=== PATIENT | male | born 1945 | race Caucasian/White ===

== ENCOUNTER → 2017-02-22 | Outpatient (CLI) | payer OTHER | LOC: CARD 10:19 | PROVIDERS: ATTEND Internal Medicine Interventional Cardiology | DX: Z01.810 Encounter for preprocedural cardiovascular examination (principal); I10 Essential (primary) hypertension | CPT/HCPCS: 93306 ==

== ENCOUNTER 2021-05-17 09:52 | Inpatient (IN) | payer OTHER ==
[2021-05-17] VITALS (12 sets, daily range): BP systolic 98–135; BP diastolic 50–76
[~2021-05-17] VITALS: Ht 187.9 cm; Wt 101.4 kg
[2021-05-17] MEDS ORDERED: VANCOMYCIN 500 MG/NS 100 ML IV SCH ×2 (10:00)
--- NOTE | 2021-05-17 10:13 | ED General ---
General Chief Complaint: Altered Mental Status Stated Complaint: WEAKNESS Nursing Triage Note: PT TO RM 7 BY WC WITH COMPLAINT OF DECLINE OVER THE LAST TWO WEEKS. STATES PT HAS HAD INCREASING WEAKNESS. PT WILL STATE NAME. Source of Information: Patient Exam Limitations: No Limitations History of Present Illness Date Seen by Provider: May 17, 2021 Time Seen by Provider: 09:50 Initial Comments The patient presents ER by private conveyance with his and daughter and chief complaint that for the past several weeks he has had gradual, steady decline, weakness tiredness inability to walk for the past couple weeks and decreased interest in food and drinking. He has a history of early onset dementia. She had to push him in a wheelchair to his appointment [address] Sanchez for prostate exam. He does not have prostate cancer. He has been complaining of increased frequency of urine and difficulty emptying his bladder. He is diabetic but not on any insulin. No fevers or chills that she is aware of. No cough. Patient is largely noncontributory to history but will answer his name. Nursing notes that he was 88-89% on room air on arrival. He does not rely on oxygen at baseline. He has a history of mesothelioma. He is patient of the [facility]. He is denying any pain and not tender to palpation. He is on glipizide and spironolactone. He has had COVID and flu vaccines. Allergies and Home Medications Allergies Coded Allergies: Penicillins (Verified Allergy, Unknown, 05/17/21) Patient Home Medication List Home Medication List Reviewed: Yes Review of Systems Review of Systems Constitutional: No chills; dizziness; No fever; malaise, weakness EENTM: No ear discharge, No ear pain Respiratory: No cough; short of breath; No wheezing Cardiovascular: No edema, No palpitations Gastrointestinal: No abdominal pain, No constipation, No diarrhea, No nausea Genitourinary: No discharge, No dysuria Musculoskeletal: No back pain, No joint pain All Other Systems Reviewed Negative Unless Noted: Yes Past Bpjtrtu-Bxhksh-Irnmtt Hx Patient Social History Tobacco Use?: No Smoking Status: Former Smoker Smokeless Tobacco Frequency: Current Someday User Use of E-Cig and/or Vaping dev: No Substance use?: No Alcohol Use?: No Pt feels they are or have been: No Physical Exam-Suspected Sepsis Physical Exam Vital Signs Vital Signs - First Documented 2/20/22 09:55 Pulse 90 Resp 32 B/P (MAP) 105/58 (74) Pulse Ox 95 O2 Delivery Nasal Cannula O2 Flow Rate 3.00 Capillary Refill : Less Than 3 Seconds Blood Pressure Mean: 74 Height, Weight, BMI Height: '" Weight: lbs. oz. kg; 25.00 BMI Method: General Appearance: Chronically ill, Moderate Distress Eyes: Bilateral Eye Normal Inspection, Bilateral Eye PERRL, Bilateral Eye EOMI HEENT: PERRL/EOMI, TMs Normal; No Pharynx Normal (dry mm), No Moist Mucous Membranes Neck: Full Range of Motion, Normal Inspection, Non Tender Respiratory: Lungs Clear, No Accessory Muscle Use, Decreased Breath Sounds, Respiratory Distress (88% on room air on arrival.) Cardiovascular: Regular Rate, Rhythm, Normal Peripheral Pulses Gastrointestinal: Normal Bowel Sounds, Non Tender, Soft Extremity: Normal Capillary Refill, Normal Inspection Neurologic/Psychiatric: Alert, No Motor/Sensory Deficits, Other (Oriented to person only. Not contributory towards history but at least answer simple questions yes or no.) Skin: normal color, warm/dry Focused Exam Sepsis Stage: Septic Shock Possible Source: Pulmonary Lactate Level 05/17/21 10:09: Lactic Acid Level 6.70*H Time of Focused Exam: 11:16 Respiratory: Lungs Clear, No Respiratory Distress (Oxygen saturation 98 percent on 3 L by nasal cannula), Decreased Breath Sounds Cardiovascular: Regular Rate, Rhythm, No Edema, Normal Peripheral Pulses Capillary Refill: Less Than 3 Seconds Peripheral Pulses: 2+ Radial Pulses (R), 2+ Radial Pulses (L) Skin: normal color, warm/dry Lactic Acid Level Laboratory Tests Test 05/17/21 10:09 Lactic Acid Level 6.70 MMOL/L (0.50-2.00) *H Within 3hrs of presentation: Admin fluids, Admin ABX, Blood cultures prior to ABX's, Focus exam, Lactate level, Other (2 large-bore peripheral IVs.) Progress/Results/Core Measures Suspected Sepsis SIRS Temperature: Pulse: 90 Respiratory Rate: 32 Laboratory Tests 05/17/21 10:09: White Blood Count 11.1H Blood Pressure 105 /58 Mean: 74 05/17/21 10:09: Lactic Acid Level 6.70*H Laboratory Tests 05/17/21 10:09: Creatinine 2.91H, INR Comment 1.1, Platelet Count 161, Total Bilirubin 1.6H Results/Orders Lab Results Laboratory Tests Test 05/17/21 10:09 05/17/21 10:37 Range/Units White Blood Count 11.1 H 4.3-11.0 10^3/uL Red Blood Count 4.99 4.30-5.52 10^6/uL Hemoglobin 15.1 13.3-17.7 g/dL Hematocrit 50 40-54 % Mean Corpuscular Volume 100 H 80-99 fL Mean Corpuscular Hemoglobin 30 25-34 pg Mean Corpuscular Hemoglobin Concent 30 L 32-36 g/dL Red Cell Distribution Width 14.2 10.0-14.5 % Platelet Count 161 130-400 10^3/uL Mean Platelet Volume 11.5 9.0-12.2 fL Immature Granulocyte % (Auto) 0 % Neutrophils (%) (Auto) 86 H 42-75 % Lymphocytes (%) (Auto) 7 L 12-44 % Monocytes (%) (Auto) 7 0-12 % Eosinophils (%) (Auto) 0 0-10 % Basophils (%) (Auto) 0 0-10 % Neutrophils # (Auto) 9.6 H 1.8-7.8 10^3/uL Lymphocytes # (Auto) 0.7 L 1.0-4.0 10^3/uL Monocytes # (Auto) 0.8 0.0-1.0 10^3/uL Eosinophils # (Auto) 0.0 0.0-0.3 10^3/uL Basophils # (Auto) 0.0 0.0-0.1 10^3/uL Immature Granulocyte # (Auto) 0.0 0.0-0.1 10^3/uL Neutrophils % (Manual) 87 % Lymphocytes % (Manual) 4 % Monocytes % (Manual) 6 % Band Neutrophils 3 % Blood Morphology Comment NORMAL Prothrombin Time 14.4 12.2-14.7 SEC INR Comment 1.1 0.8-1.4 Activated Partial Thromboplast Time 27 24-35 SEC Urine Color YELLOW Urine Clarity CLEAR Urine pH 5.5 5-9 Urine Specific [place] <=1.005 1.016-1.022 Urine Protein NEGATIVE NEGATIVE Urine Glucose (UA) 3+ H NEGATIVE Urine Ketones NEGATIVE NEGATIVE Urine Nitrite NEGATIVE NEGATIVE Urine Bilirubin NEGATIVE NEGATIVE Urine Urobilinogen 0.2 < = 1.0 MG/DL Urine Leukocyte Esterase NEGATIVE NEGATIVE Urine RBC (Auto) NEGATIVE NEGATIVE Urine RBC NONE /HPF Urine WBC NONE /HPF Urine Squamous Epithelial Cells 0-2 /HPF Urine Crystals NONE /LPF Urine Bacteria TRACE /HPF Urine Casts NONE /LPF Urine Mucus NEGATIVE /LPF Urine Culture Indicated CULTURE PENDING Sodium Level 135 135-145 MMOL/L Potassium Level 5.0 3.6-5.0 MMOL/L Chloride Level 98 98-107 MMOL/L Carbon Dioxide Level 16 L 21-32 MMOL/L Anion Gap 21 H 5-14 MMOL/L Blood Urea Nitrogen 45 H 7-18 MG/DL Creatinine 2.91 H 0.60-1.30 MG/DL Estimat Glomerular Filtration Rate 22 BUN/Creatinine Ratio 15 Glucose Level 1173 *H 70-105 MG/DL Lactic Acid Level 6.70 *H 0.50-2.00 MMOL/L Calcium Level 10.0 8.5-10.1 MG/DL Corrected Calcium 10.2 H 8.5-10.1 MG/DL Total Bilirubin 1.6 H 0.1-1.0 MG/DL Aspartate Amino Transf (AST/SGOT) 13 5-34 U/L Alanine Aminotransferase (ALT/SGPT) 35 0-55 U/L Alkaline Phosphatase 127 40-136 U/L Ammonia 10 L 11-32 UMOL/L Troponin I 0.036 H <0.028 NG/ML Total Protein 6.5 6.4-8.2 GM/DL Albumin 3.7 3.2-4.5 GM/DL Urine Opiates Screen NEGATIVE NEGATIVE Urine Oxycodone Screen NEGATIVE NEGATIVE Urine Methadone Screen NEGATIVE NEGATIVE Urine Propoxyphene Screen NEGATIVE NEGATIVE Urine Barbiturates Screen NEGATIVE NEGATIVE Ur Tricyclic Antidepressants Screen NEGATIVE NEGATIVE Urine Phencyclidine Screen NEGATIVE NEGATIVE Urine Amphetamines Screen NEGATIVE NEGATIVE Urine Methamphetamines Screen NEGATIVE NEGATIVE Urine Benzodiazepines Screen NEGATIVE NEGATIVE Urine Cocaine Screen NEGATIVE NEGATIVE Urine Cannabinoids Screen POSITIVE H NEGATIVE Serum Alcohol 10 <10 MG/DL Influenza Type A (RT-PCR) Not Detected Not Detecte Influenza Type B (RT-PCR) Not Detected Not Detecte SARS-CoV-2 RNA (RT-PCR) Not Detected Not Detecte Blood Gas Puncture Site LEFT RADIAL Blood Gas Patient Temperature 36.7 Arterial Blood pH 7.35 L 7.37-7.43 Arterial Blood Partial Pressure CO2 34 L 35-45 MMHG Arterial Blood Partial Pressure O2 82 79-93 MMHG Arterial Blood HCO3 19 L 23-27 MMOL/L Arterial Blood Total CO2 19.7 L 21.0-31.0 MMOL/L Arterial Blood Oxygen Saturation 96 94-100 % Arterial Blood Base Excess -6.0 L -2.5-2.5 MMOL/L Devang Test POSITIVE Blood Gas Ventilator Setting NO Blood Gas Inspired Oxygen 3 My Orders Orders - ILENE EPSTEIN Accucheck Stat ONCE (05/17/21 10:13) Covid 19 Inhouse Test (05/17/21 10:13) Influenza A And B By Pcr (05/17/21 10:13) Cbc With Automated Diff (05/17/21 10:13) Comprehensive Metabolic Panel (05/17/21 10:13) Blood Culture (05/17/21 10:13) Sputum Culture (05/17/21 10:13) Urinalysis (05/17/21 10:13) Urine Culture (05/17/21 10:13) Protime With Inr (05/17/21 10:13) Partial Thromboplastin Time (05/17/21 10:13) Chest 1 View, Ap/Pa Only (05/17/21 10:13) Ed Iv/Invasive Line Start (05/17/21 10:13) Ed Iv/Invasive Line Start (05/17/21 10:13) Ekg Tracing (05/17/21 10:13) Troponin I Connor (05/17/21 10:13) Vital Signs Adult Sepsis Patie Q15M (05/17/21 10:13) O2 (05/17/21 10:13) Remove Rings In Anticipation O (05/17/21 10:13) Lactic Acid Analyzer (05/17/21 10:13) Ns Iv 1000 Ml (Sodium Chloride 0.9%) (05/17/21 10:15) Cefepime Injection (Maxipime Injection) (05/17/21 10:15) Vancomycin Injection (Vancomycin Injecti (05/17/21 10:15) Ammonia (05/17/21 10:13) Drug Screen Stat (Urine) (05/17/21 10:13) Alcohol (05/17/21 10:13) Insulin (Regular) Human (Novolin R (Per (05/17/21 10:15) Ct Head/Cervical Spine Wo (05/17/21 10:13) Ed Iv/Invasive Line Start (05/17/21 10:27) Ns Iv 1000 Ml (Sodium Chloride 0.9%) (05/17/21 10:30) Ns Iv 1000 Ml (Sodium Chloride 0.9%) (05/17/21 10:27) Manual Differential (05/17/21 10:09) Arterial Blood Gas (05/17/21 10:38) Ed Iv/Invasive Line Start (05/17/21 10:40) Ns Iv 1000 Ml (Sodium Chloride 0.9%) (05/17/21 10:45) Procalcitonin (Pct) (05/17/21 11:25) Fibrin Degradation Products (05/17/21 11:25) Medications Given in ED Current Medications Medications Dose Ordered Sig/Lilliam Route Start Time Stop Time Status Last Admin Dose Admin Cefepime HCl 1000 mg/Sodium Chloride 50 ml @ 100 mls/hr ONCE ONCE IV 05/17/21 10:15 05/17/21 10:44 DC 05/17/21 10:36 100 MLS/HR Insulin Human Regular 10 unit ONCE ONCE IV 05/17/21 10:15 05/17/21 10:18 DC 05/17/21 10:36 10 UNIT Vancomycin HCl 1750 mg/Sodium Chloride 500 ml @ 258 mls/hr ONCE ONCE IV 05/17/21 10:15 05/17/21 12:11 05/17/21 11:09 258 MLS/HR Vital Signs/I&O 05/17/21 09:55 Pulse 90 Resp 32 B/P (MAP) 105/58 (74) Pulse Ox 95 O2 Delivery Nasal Cannula O2 Flow Rate 3.00 Capillary Refill : Less Than 3 Seconds 2 Blood Pressure Mean: 74 Progress Note #1: Time: 10:18 Progress Note Significant hyperglycemia with Accu-Chek reading high. 10 units of IV regular insulin, 2 L of fluid which is between 20 and 30 mL/kg, septic work-up including cefepime and vancomycin to cover for UTI or pneumonia and given his hypoxia. ABG. EKG. because of the history of recent falls CT of his head and C-spine. COVID and influenza swabs. Progress Note #2: Time: 11:14 Progress Note Glucose is 1173. Ketones are not present but he is in metabolic acidosis. X- ray unrevealing but he is quite dry and because of his hypoxia I suspect a pneumonia. We will go ahead and cover him with DVT prophylaxis, broad-spectrum antibiotics and set him up in the ICU for an insulin drip. ECG Initial ECG Impression Date: May 17, 2021 Initial ECG Impression Time: 10:20 Initial ECG Rate: 90 Initial ECG Rhythm: Normal Sinus Initial ECG Intervals: Normal Initial ECG Impression: Normal Comment Normal sinus rhythm with no clinically relevant ST elevation or depression. Diagnostic Imaging Diagonstic Imaging: Xray Plain Films/CT/US/NM/MRI: chest Comments NAME: [facility] REC#: [id number] PT STATUS: REG ER : 1945 PHYSICIAN: ILENE EPSTEIN MD ADMIT DATE: 05/17/21/ER Draft Date of Exam:05/17/21 CHEST 1 VIEW, AP/PA ONLY EXAMINATION: Chest 1 view HISTORY: Altered mental status. COMPARISON: None available. FINDINGS: There is mild basilar atelectasis. Otherwise, the lungs are clear without edema or pneumonia. No pleural effusion or pneumothorax. Heart size is normal. IMPRESSION: 1. Mild atelectasis, otherwise clear lungs. Dictated on workstation # [id number] Dict: 05/17/21 1107 Trans: 05/17/21 1109 [facility] [id number] Interpreted by: QUIQUE MEZA MD Electronically signed by: Reviewed: Reviewed by Me Diagonstic Imaging: CT Plain Films/CT/US/NM/MRI: c-spine, head Comments NAME: [facility] REC#: [id number] PT STATUS: REG ER : 1945 PHYSICIAN: ILENE EPSTEIN MD ADMIT DATE: 05/17/21/ER Draft Date of Exam:05/17/21 CT HEAD/CERVICAL SPINE WO EXAMINATION: CT head and CT cervical spine without contrast. TECHNIQUE: Multiple contiguous axial images were obtained through the brain and cervical spine without the use of intravenous contrast. Sagittal and coronal reformations through the cervical spine were then performed. All CT scans use one or more of the following dose optimizing techniques: automated exposure control, MA and/or KvP adjustment based on patient size and exam type or iterative reconstruction. HISTORY: Head and neck injury COMPARISON: None available. FINDINGS: The lora-white matter differentiation is normal. No mass effect or midline shift. There is age related cerebral atrophy with ex vacuo dilation of the ventricles. There is an old right cerebellar infarct. Periventricular white matter hypoattenuation is in keeping with chronic small vessel ischemic changes. Basilar cisterns are patent. There are no intra- or extra-axial fluid collections. There is no intracranial hemorrhage. The orbits are normal. Paranasal sinuses are normal. Mastoid air cells are clear. No soft tissue abnormality is seen. No osseus lesions or fractures are seen. The alignment of the cervical spine is normal. No fracture is seen. Vertebral body heights are normal. The craniocervical junction is normal. There is moderate degenerative disease in the cervical spine. There is no spinal canal stenosis. No soft tissue abnormality is seen in the neck. Limited views of the superior thorax are normal. IMPRESSION: 1. No acute intracranial abnormality. 2. No cervical spine fracture. Dictated on workstation # [id number] Dict: 05/17/21 1116 Trans: 05/17/21 1120 [facility] [id number] Interpreted by: QUIQUE MEZA MD Electronically signed by: Reviewed: Reviewed by Me Departure Communication (Admissions) Time/Spoke to Admitting Phy: 11:27 Discussed the case with Dr. Briseno who agrees to accept the patient to the ICU. Time/Spoke to Consulting Phy: 11:30 Discussed the case with eICU and they agree to consult on the case. Impression Primary Impression: Type 2 diabetes mellitus with hyperosmolar hyperglycemic state (HHS) Additional Impressions: Septic shock Pneumonia Qualified Codes: J18.9 - Pneumonia, unspecified organism Acute respiratory failure with hypoxemia Acute kidney injury Disposition: ADMITTED INPATIENT Condition: Stable Admissions Decision to Admit Reason: Admit from ER (General) Decision to Admit/Date: May 17, 2021 Time/Decision to Admit Time: 11:24 Departure-Patient Inst. Referrals: MARITZA SIDDIQUI (PCP/Family) Primary Care Physician ILENE EPSTEIN May 17, 2021 10:13
[2021-05-17] MEDS ORDERED: NS IV 1000 ML 1,000 ML IV SCH ×3 (10:15→10:45)
[2021-05-17] MEDS ORDERED: VANCOMYCIN INJECTION 1,750 MG in NS IV 500 ML 500 ML IV ONE (10:15)
[2021-05-17] MEDS ORDERED: CEFEPIME INJECTION 1,000 MG in NS (IVPB) 50 ML IV ONE (10:15)
[2021-05-17] MEDS ORDERED: inSUlin (REGULAR) HUMAN 1 UNIT/0.01 ML (CHARGE PER UNIT) IV ONE (10:15)
[2021-05-17 10:23] LABS: BILIRUBIN,URINE NEGATIVE (NEGATIVE); CLARITY,URINE CLEAR; COLOR,URINE YELLOW; GLUCOSE, URINE (UA) 3+ (NEGATIVE); KETONES,URINE NEGATIVE (NEGATIVE); LEUKOCYTE ESTERASE ,URINE NEGATIVE (NEGATIVE); NITRITE,URINE NEGATIVE (NEGATIVE); PH,URINE 5.5 (5-9); PROTEIN,URINE NEGATIVE (NEGATIVE)
[2021-05-17] MEDS ORDERED: NS IV 1000 ML 1,000 ML ONE (10:27)
[2021-05-17 10:31] LABS: BACTERIA,URINE TRACE /HPF; BASOPHILS % (AUTO) 0 % (0-10); EOSINOPHILS % (AUTO) 0 % (0-10); HEMATOCRIT 50 % (40-54); HEMOGLOBIN 15.1 g/dL (13.3-17.7); LYMPHOCYTES # (AUTO) 0.7 10^3/uL (1.0-4.0); LYMPHOCYTES % (AUTO) 7 % (12-44); MEAN CORPUSCULAR HEMOGLOBIN 30 pg (25-34); MEAN CORPUSCULAR HGB CONC 30 g/dL (32-36); MEAN CORPUSCULAR VOLUME 100 fL (80-99); MEAN PLATELET VOLUME 11.5 fL (9.0-12.2); MONOCYTES # (AUTO) 0.8 10^3/uL (0.0-1.0); MONOCYTES % (AUTO) 7 % (0-12); NEUTROPHILS # (AUTO) 9.6 10^3/uL (1.8-7.8); NEUTROPHILS % (AUTO) 86 % (42-75); PLATELET COUNT 161 10^3/uL (130-400); SQUAMOUS EPITHELIAL CELL,UR 0-2 /HPF; WHITE BLOOD COUNT 11.1 10^3/uL (4.3-11.0)
[2021-05-17 10:32] LABS: ALBUMIN 3.7 GM/DL (3.2-4.5)
[2021-05-17 10:34] LABS: INR 1.1 (0.8-1.4); PROTHROMBIN TIME PATIENT 14.4 SEC (12.2-14.7)
[2021-05-17 10:35] LABS: TOTAL PROTEIN 6.5 GM/DL (6.4-8.2)
[2021-05-17 10:37] LABS: BILIRUBIN,TOTAL 1.6 MG/DL (0.1-1.0)
[2021-05-17 10:39] LABS: CREATININE SERUM 2.91 MG/DL (0.60-1.30)
[2021-05-17 10:43] LABS: ABG OXYGEN SATURATION 96 % (94-100); ABG PCO2 34 MMHG (35-45); ABG PH 7.35 (7.37-7.43); ABG PO2 82 MMHG (79-93); ABG TCO2 19.7 MMOL/L (21.0-31.0)
[2021-05-17 10:45] LABS: AMPHETAMINE SCREEN, URINE NEGATIVE (NEGATIVE); BARBITURATE SCREEN URINE NEGATIVE (NEGATIVE); BENZODIAZEPINES SCREEN URINE NEGATIVE (NEGATIVE); CANNABINOID SCREEN, URINE POSITIVE (NEGATIVE); COCAINE SCREEN URINE NEGATIVE (NEGATIVE); METHADONE STAT NEGATIVE (NEGATIVE); METHAMPHETAMINE SCREEN URINE S NEGATIVE (NEGATIVE); OPIATE SCREEN URINE NEGATIVE (NEGATIVE); OXYCODONE STAT NEGATIVE (NEGATIVE); PROPOXYPHENE STAT NEGATIVE (NEGATIVE); TRICYCLIC ANTIDEPRESSANTS SCRE NEGATIVE (NEGATIVE)
[2021-05-17 10:47] LABS: ALLENS TEST POSITIVE; INSPIRED O2 3; PATIENT TEMP 36.7; VENTILATOR NO
[2021-05-17 10:51] LABS: BAND NEUTROPHILS 3 %; LYMPHOCYTES % (MANUAL) 4 %; MONOCYTES % (MANUAL) 6 %; NEUTROPHILS % (MANUAL) 87 %; RBC MORPH NORMAL
--- NOTE | 2021-05-17 11:09 | Diagnostic Imaging Report ---
EXAMINATION: Chest 1 view HISTORY: Altered mental status. COMPARISON: None available. FINDINGS: There is mild basilar atelectasis. Otherwise, the lungs are clear without edema or pneumonia. No pleural effusion or pneumothorax. Heart size is normal. IMPRESSION: 1. Mild atelectasis, otherwise clear lungs. Dictated by: Dictated on workstation # [id number]
--- NOTE | 2021-05-17 11:20 | Diagnostic Imaging Report ---
EXAMINATION: CT head and CT cervical spine without contrast. TECHNIQUE: Multiple contiguous axial images were obtained through the brain and cervical spine without the use of intravenous contrast. Sagittal and coronal reformations through the cervical spine were then performed. All CT scans use one or more of the following dose optimizing techniques: automated exposure control, MA and/or KvP adjustment based on patient size and exam type or iterative reconstruction. HISTORY: Head and neck injury COMPARISON: None available. FINDINGS: The lora-white matter differentiation is normal. No mass effect or midline shift. There is age related cerebral atrophy with ex vacuo dilation of the ventricles. There is an old right cerebellar infarct. Periventricular white matter hypoattenuation is in keeping with chronic small vessel ischemic changes. Basilar cisterns are patent. There are no intra- or extra-axial fluid collections. There is no intracranial hemorrhage. The orbits are normal. Paranasal sinuses are normal. Mastoid air cells are clear. No soft tissue abnormality is seen. No osseus lesions or fractures are seen. The alignment of the cervical spine is normal. No fracture is seen. Vertebral body heights are normal. The craniocervical junction is normal. There is moderate degenerative disease in the cervical spine. There is no spinal canal stenosis. No soft tissue abnormality is seen in the neck. Limited views of the superior thorax are normal. IMPRESSION: 1. No acute intracranial abnormality. 2. No cervical spine fracture. Dictated by: Dictated on workstation # [id number]
[2021-05-17] MEDS ORDERED: 1/2 NS IV SOLUTION 1,000 ML IV ONE (13:19)
[2021-05-17] MEDS ORDERED: POTASSIUM CL 10MEQ/50ML IVPB 50 ML IV ONE (13:20)
--- NOTE | 2021-05-17 13:25 | History & Physical-Hospitalist ---
History of Present Illness HPI/Chief Complaint Khris Dc is a 76 year old male with PMH HTN, HLD, T2DM, mesothelioma, dementia, who presented with weakness. He is a poor historian. According to ER, he was weak and tired over recent weeks. He was also having decreased appetite and intake. He denies pain. He denies shortness of breath. Source: patient, RN/MD Exam Limitations: clinical condition Date Seen 05/17/21 Time Seen by a Provider: 13:15 Attending Physician Cam Tran MD PCP Mariajose Grace Referring Physician Date of Admission May 17, 2021 at 11:15 Home Medications & Allergies Home Medications Reviewed patient Home Medication Reconciliation performed by pharmacy medication reconciliations crime scene technician and/or nursing. Patients Allergies have been reviewed. Allergies Allergies Coded Allergies Penicillins (Verified Allergy, Unknown, 05/17/21) Past Knjcoeb-Syxjly-Ozwpau Hx Patient Social History Tobacco Use?: No Smoking Status: Former Smoker Smokeless Tobacco Frequency: Current Someday User Use of E-Cig and/or Vaping dev: No Substance use?: No Alcohol Use?: No Pt feels they are or have been: No Immunizations Up To Date First/Initial COVID19 Vaccinat: 2020 Second COVID19 Vaccination Faustino: 2020 Current Status Advance Directives: No Primary Language: Colombian Preferred Spoken Language: Colombian Past Medical History High Cholesterol, Hypertension Dementia Diabetes, Non-Insulin dep Family Medical History No Pertinent Family Hx Review of Systems Constitutional: no symptoms reported, see HPI Physical Exam Physical Exam Vital Signs Vital Signs - First Documented 05/17/21 05/17/21 09:55 13:15 Temp 36.1 Pulse 90 Resp 32 B/P (MAP) 105/58 (74) Pulse Ox 95 O2 Delivery Nasal Cannula O2 Flow Rate 3.00 Capillary Refill : Less Than 3 Seconds Height, Weight, BMI Height: '" Weight: lbs. oz. kg; 25.00 BMI Method: General Appearance: No Apparent Distress, WD/WN HEENT: PERRL/EOMI, Other (dry mucous membranes) Neck: Normal Inspection, Supple Respiratory: Lungs Clear, No Respiratory Distress Cardiovascular: Regular Rate, Rhythm, No Edema, No Murmur Gastrointestinal: Normal Bowel Sounds, Non Tender, Soft Extremity: Normal Inspection, Non Tender, No Pedal Edema Neurologic/Psychiatric: Alert, No Motor/Sensory Deficits, Disoriented Skin: Normal Color, Warm/Dry Results Results/Procedures Labs Laboratory Tests 05/17/21 10:09 05/17/21 13:31 05/17/21 15:11 05/17/21 16:52 05/17/21 18:32 05/18/21 05:17 05/18/21 13:40 Patient resulted labs reviewed. Imaging: Reviewed Imaging Report Assessment/Plan Admission Diagnosis T2DM with HHS Admission Status: Inpatient Order (span 2 midnights) Reason for Inpatient Admission: IV insulin Assessment and Plan T2DM with HHS HARRIS Lactic acidosis HHS protocol IV fluids PNA Acute respiratory failure with hypoxia Zosyn Supplemental oxygen as needed HTN HLD BPH Dementia Await med rec DVT prophylaxis: Lovenox Critical Care Critically Ill Patient Diagnosis/Problems Diagnosis/Problems (1) Type 2 diabetes mellitus with hyperosmolar hyperglycemic state (HHS) Status: Acute (2) Lactic acidosis Status: Acute (3) Acute kidney injury Status: Acute (4) Acute respiratory failure with hypoxemia Status: Acute (5) Pneumonia Status: Acute Qualifiers: Pneumonia type: due to unspecified organism Laterality: unspecified laterality Lung location: unspecified part of lung Qualified Codes: J18.9 - Pneumonia, unspecified organism CAM TRAN MD May 17, 2021 13:25
[2021-05-17] MEDS ORDERED: ENOXAPARIN 30 MG/0.3 ML (LOVENOX) SYR SC SCH (14:00)
[2021-05-17] MEDS ORDERED: ONDANSETRON 4 MG/2 ML (SDV) Z0FRAN IV PRN (14:00)
[2021-05-17] MEDS ORDERED: ACETAMINOPHEN 325 MG TABLET PO PRN (14:00)
[2021-05-17] MEDS ORDERED: ACETAMINOPHEN 650 MG SUPP (TYLENOL) PR PRN (14:15)
[2021-05-17] MEDS ORDERED: RT-ALBUTEROL/IPRATROPIUM 3 ML (DUONEB) VIAL INH PRN (15:15)
--- NOTE | 2021-05-17 15:29 | Tele-ICU Consult ---
History of Present Illness History of Present Illness Date Seen by Provider: May 17, 2021 Time Seen by Provider: 15:28 Date of Admission Allergies and Home Medications Allergies Coded Allergies: Penicillins (Verified Allergy, Unknown, 05/17/21) Past Medical/Social/Family Hx Patient Social History Tobacco Use?: No Smoking Status: Former Smoker Smokeless Tobacco Frequency: Current Someday User Use of E-Cig and/or Vaping dev: No Substance use?: No Alcohol Use?: No Pt stated abuse/neglect: No Immunizations Up To Date Influenza Vaccine Up-to-Date: Yes; Up-to-Date First/Initial COVID19 Vaccinat: 2020 Second COVID19 Vaccination Faustino: 2020 Current Status Advance Directives: No Primary Language: Georgian Preferred Spoken Language: Georgian Review of Systems Constitutional: see HPI Focused Exam Lactate Level 05/17/21 10:09: Lactic Acid Level 6.70*H 05/17/21 12:48: Lactic Acid Level 3.50*H Height, Weight, BMI Height: '" Weight: lbs. oz. kg; 27.98 BMI Method: Time of Focused Exam: 11:16 Lactic Acid Level Laboratory Tests Test 05/17/21 12:48 Lactic Acid Level 3.50 MMOL/L (0.50-2.00) *H Exam Exam Patient acknowledged, consented, and participated in this virtual visit which was conducted using real time audio/video Vital Signs Date Time Temp Pulse Resp B/P (MAP) Pulse Ox O2 Delivery O2 Flow Rate FiO2 05/17/21 14:55 36.1 101 94 05/17/21 14:00 101 10 128/76 (93) 94 Nasal Cannula 2.00 05/17/21 13:30 100 22 130/65 (86) 91 Nasal Cannula 2.00 05/17/21 13:24 102 05/17/21 13:15 36.1 Nasal Cannula 2.00 05/17/21 09:55 90 32 105/58 (74) 95 Nasal Cannula 3.00 05/17/21 09:55 Nasal Cannula 3.00 Height & Weight Height: '" Weight: lbs. oz. kg; 27.98 BMI Method: General Appearance: No Apparent Distress, WD/WN HEENT: PERRL/EOMI, Other (dry mucous membranes) Neck: Normal Inspection, Supple Respiratory: Lungs Clear, No Respiratory Distress Cardiovascular: Regular Rate, Rhythm, No Edema, No Murmur Capillary Refill: Less Than 3 Seconds Peripheral Pulses: 2+ Radial Pulses (R), 2+ Radial Pulses (L) Extremity: Normal Inspection, Non Tender, No Pedal Edema Neurologic/Psychiatric: Alert, No Motor/Sensory Deficits, Disoriented Skin: Normal Color, Warm/Dry Results Lab Laboratory Tests 05/17/21 10:09 05/17/21 13:31 Assessment/Plan Assessment/Plan (Tele-ICU Physician , consultation) Available chart/ vitals / labs / Images reviewed H&P is from ER notes Patient's information available about PMH, Shx, Fhx allergy reviewed in EMR. ROS as per chart and RN report Now in ICU, hemodynamically stable Video assessment done using teleICU camera, rest of exam as per RN Discussed with RN. Consultants: Hospital course: 05/17 - DKA, AMS , HARRIS A/P DKA Insulin drip continue to monitor for resolution of acidosis, AG and electrolytes. Continue hydration. HARRIS - dehydration, hypotension - cont IVF - follow closely Leukocytosis with elevPCT ( NEG covid and flu) - started on cevepime vanco 05/17 - follow cx Elv lactate - -possible sepsis and mild hypoxia - improving after 3 L NS in ER - follow elv trop - ? demand , follow Encephalopathy --? due to above -CTH and cerv spine CT - no acute finding 05/17 Hypoxia - mild , on 4 l NC - follow Lines : (Central Line Necessity Reviewed) Boyle: 05/17 OG: Nutrition: npo Analgesia: Anxiety/ delirium VTE Prophylaxis: started on lovenox - WILL RECINOS TO HEPARIN IF WORSENING GFR Stress Ulcer Prophylaxis: Plans in collaboration with bedside consultants and IM MDs. Discussed with RN to reach out if any questions or concerns A total of 35 minutes of critical care time was devoted to this patient today, required to treat and/or prevent further deterioration of critical care condition ( as above ) . AMIRA JUAREZ MD May 17, 2021 15:29
[2021-05-17] MEDS: D5 1/2 NS IV 1,000 ML IV SCH ×3 (15:40→23:27)
[2021-05-17] MEDS: 1/2 NS IV SOLUTION 1,000 ML IV SCH ×3 (15:40→21:39)
[2021-05-17] MEDS: DEXTROSE 10% IV SOLUTION 1,000 ML IV SCH (15:40)
[2021-05-17] MEDS: POTASSIUM CL 10MEQ/50ML IVPB X 4 (TOTAL 40 MEQ) IV SCH ×3 (15:42→15:47)
[2021-05-17 15:44] LABS: POTASSIUM 4.4 MMOL/L (3.6-5.0)
[2021-05-17] MEDS: POTASSIUM CL 10MEQ/50ML IVPB 50 ML IV SCH ×5 (15:44→23:28)
[2021-05-17 15:46] LABS: CALCIUM 8.7 MG/DL (8.5-10.1)
[2021-05-17 15:50] LABS: CREATININE SERUM 2.41 MG/DL (0.60-1.30)
[2021-05-17 17:17] LABS: POTASSIUM 4.2 MMOL/L (3.6-5.0)
[2021-05-17 17:18] LABS: CALCIUM 8.8 MG/DL (8.5-10.1)
[2021-05-17 17:22] LABS: CREATININE SERUM 2.34 MG/DL (0.60-1.30)
[2021-05-17 18:46] LABS: POTASSIUM 4.3 MMOL/L (3.6-5.0)
[2021-05-17 18:51] LABS: CREATININE SERUM 2.24 MG/DL (0.60-1.30)
[2021-05-17 18:54] LABS: MAGNESIUM 2.9 MG/DL (1.6-2.4)
[2021-05-17] MEDS: CEFEPIME 1,000 MG/NS 50 ML IVPB IV SCH ×2 (21:40)
[2021-05-17] MEDS: RT-ALBUTEROL/IPRATROPIUM 3 ML (DUONEB) VIAL INH SCH (22:08)
[2021-05-18] VITALS (25 sets, daily range): BP systolic 102–141; BP diastolic 52–114
[2021-05-18] MEDS: DEXTROSE 10% IV SOLUTION 1,000 ML IV SCH ×3 (01:14→18:12)
[2021-05-18] MEDS: 1/2 NS IV SOLUTION 1,000 ML IV SCH ×6 (01:14→22:47)
[2021-05-18] MEDS: POTASSIUM CL 10MEQ/50ML IVPB 50 ML IV SCH ×13 (01:38→23:34)
[2021-05-18] MEDS: D5 1/2 NS IV 1,000 ML IV SCH ×6 (02:07→22:48)
[2021-05-18 05:43] LABS: BASOPHILS % (AUTO) 0 % (0-10); EOSINOPHILS # (AUTO) 0.1 10^3/uL (0.0-0.3); EOSINOPHILS % (AUTO) 1 % (0-10); HEMATOCRIT 40 % (40-54); HEMOGLOBIN 13.1 g/dL (13.3-17.7); LYMPHOCYTES # (AUTO) 1.9 10^3/uL (1.0-4.0); LYMPHOCYTES % (AUTO) 20 % (12-44); MEAN CORPUSCULAR HEMOGLOBIN 31 pg (25-34); MEAN CORPUSCULAR HGB CONC 33 g/dL (32-36); MEAN CORPUSCULAR VOLUME 93 fL (80-99); MEAN PLATELET VOLUME 10.7 fL (9.0-12.2); MONOCYTES # (AUTO) 0.9 10^3/uL (0.0-1.0); MONOCYTES % (AUTO) 10 % (0-12); NEUTROPHILS # (AUTO) 6.3 10^3/uL (1.8-7.8); NEUTROPHILS % (AUTO) 68 % (42-75); PLATELET COUNT 133 10^3/uL (130-400); WHITE BLOOD COUNT 9.2 10^3/uL (4.3-11.0)
[2021-05-18 06:00] LABS: POTASSIUM 4.1 MMOL/L (3.6-5.0)
[2021-05-18 06:01] LABS: CALCIUM 8.5 MG/DL (8.5-10.1)
[2021-05-18 06:05] LABS: CREATININE SERUM 1.73 MG/DL (0.60-1.30); PHOSPHORUS 1.8 MG/DL (2.3-4.7)
[2021-05-18 06:08] LABS: MAGNESIUM 2.5 MG/DL (1.6-2.4)
[2021-05-18] MEDS: RT-ALBUTEROL/IPRATROPIUM 3 ML (DUONEB) VIAL INH SCH ×2 (06:31→21:00)
[2021-05-18] MEDS: MAGNESIUM 1 GM/100 ML IVPB 100 ML IV SCH (06:41)
[2021-05-18] MEDS: KCL 20 MEQ TAB (K-DUR) PO SCH (06:41)
--- NOTE | 2021-05-18 07:23 | Physician Query Clarification ---
PQ-Uncertain Diagnosis Admission/Discharge Admission Date: May 17, 2021 at 11:15 Discharge Date: Dr. Tran, The medical record reflects the following clinical scenario: History/Risk Factors: DM 2 w/hyperosmolar hyperglycemic, acute hypoxic respiratory failure, HARRIS, pneumonia Clinical Findings: WBC 11.1, Glucose 1173, Lactic acid 6.70, T 36.1, P 96, R32 Treatment: IVF, IV Cefepime, IV Vancomycin Question: Is septic shock a clinically valid diagnosis? Septic shock was documented in the ER record with no further documentation in the medical record. Please document a response in Progress Note or Discharge Summary. 1. Yes, clinically valid, condition resolved. 2. No, condition ruled out. 3. Other, with explanation of clinical findings. 4. Undetermined, no explanation for clinical findings. PHYSICIAN RESPONSE Diagnosis clinically valid: No, conditon ruled out Please remember a lack of response to the above will prompt a phone page by CDI/Coding staff. In responding to this query, please exercise your independent professional judgment. The purpose of this communication is to more accurately reflect the complexity of your patients condition. The fact that a question is asked does not imply that any particular answer is desired or expected. Thank you for your timely response to this clarification. Requestors name: Diana THIS PHYSICIAN QUERY FORM IS A PERMANENT PART OF THE MEDICAL RECORD DIANA DALTON May 18, 2021 07:23 CAM TRAN MD May 21, 2021 00:14
--- NOTE | 2021-05-18 07:30 | Physician Query Clarification ---
PQ-Intro New Diagnosis Admission/Discharge Admission Date: May 17, 2021 at 11:15 Discharge Date: Dr. Tran, The medical record reflects the following clinical scenario: History/Risk Factors: DM 2 w/hyperosmolar hyperglycemic, acute hypoxic respiratory failure, HARRIS, Pneumonia Clinical Findings: Troponin 0.036 Treatment: IVF, IV Cefepime, IV Vancomycin Question: What condition best reflects the above clinical scenario? Please document a response in the Progress Noter or Discharge Summary. 1. CA type 2 due to demand ischemia 2. Elevated troponin underlying cause undetermined 3. Other, with explanation of the clinical findings. 4. Clinically undetermined, no explanation for the clinical findings. PHYSICIAN RESPONSE What condition reflects above: 1 Please remember a lack of response to the above will prompt a phone page by CDI/Coding staff. In responding to this query, please exercise your independent professional judgment. The purpose of this communication is to more accurately reflect the complexity of your patients condition. The fact that a question is asked does not imply that any particular answer is desired or expected. Thank you for your timely response to this clarification. Requestors name: Diana THIS PHYSICIAN QUERY FORM IS A PERMANENT PART OF THE MEDICAL RECORD DIANA DALTON May 18, 2021 07:29 CAM TRAN MD May 21, 2021 00:15
[2021-05-18] MEDS: CEFEPIME 1,000 MG/NS 50 ML IVPB IV SCH ×4 (08:00→17:14)
--- NOTE | 2021-05-18 08:32 | Diagnostic Imaging Report ---
INDICATION: Pneumonia. Frontal chest obtained at 04:22 a.m. compared with 05/17/2021. FINDINGS: The heart is mildly enlarged. There is some new patchy infiltrate in the left midlung and base suspicious for pneumonia with a small amount of left pleural fluid. Right lung is clear. Density overlying the right midlung is probably a skinfold artifact. IMPRESSION: Mild cardiomegaly. There is some new infiltrate in the left midlung and base with small left pleural effusion. Dictated by: Dictated on workstation # [id number]
[2021-05-18] MEDS: VANCOMYCIN 1500 MG/NS 500 ML IVPB IV SCH ×2 (10:26)
--- NOTE | 2021-05-18 10:46 | Tele-ICU Progress Note ---
Subjective Date Seen by a Provider: May 18, 2021 Time Seen by a Provider: 10:46 Sepsis Event Evaluation Height, Weight, BMI Height: '" Weight: lbs. oz. kg; 27.98 BMI Method: Focused Exam Lactate Level 05/17/21 12:48: Lactic Acid Level 3.50*H 05/17/21 18:32: Lactic Acid Level 3.16*H 05/17/21 22:08: Lactic Acid Level 1.87 Time of Focused Exam: 11:16 Exam Exam Patient acknowledged, consented, and participated in this virtual visit which was conducted using real time audio/video Vital Signs Date Time Temp Pulse Resp B/P (MAP) Pulse Ox O2 Delivery O2 Flow Rate FiO2 05/18/21 10:00 94 22 112/81 (91) 93 Nasal Cannula 2.00 05/18/21 09:00 92 18 140/74 (96) 97 Nasal Cannula 2.00 05/18/21 08:00 91 25 125/76 (92) 97 Nasal Cannula 2.00 05/18/21 07:45 97 Nasal Cannula 2.00 05/18/21 07:33 97 05/18/21 07:00 98 10 117/77 (90) 96 Nasal Cannula 2.00 05/18/21 06:32 96 Nasal Cannula 3.00 05/18/21 06:00 90 141/82 (101) 92 Nasal Cannula 2.00 05/18/21 05:00 99 132/73 (92) 94 Nasal Cannula 2.00 05/18/21 04:00 96 103/60 (74) 92 Nasal Cannula 2.00 05/18/21 04:00 Nasal Cannula 2.00 05/18/21 04:00 36.8 05/18/21 03:00 91 27 109/71 (84) 91 Nasal Cannula 2.00 05/18/21 02:00 93 15 102/52 (69) 92 Nasal Cannula 2.00 05/18/21 01:00 89 22 112/57 (75) 95 Nasal Cannula 2.00 05/18/21 01:00 89 05/18/21 00:00 92 115/65 (82) 97 Nasal Cannula 2.00 05/18/21 00:00 36.6 05/17/21 23:15 96 23 119/67 (84) 95 Nasal Cannula 2.00 05/17/21 22:15 93 24 116/51 (72) 96 Nasal Cannula 2.00 05/17/21 22:08 Nasal Cannula 3.00 05/17/21 21:00 94 24 110/59 (76) 96 Nasal Cannula 2.00 05/17/21 20:30 100 20 120/68 (85) 94 Nasal Cannula 2.00 05/17/21 20:00 Nasal Cannula 2.00 05/17/21 19:50 36.5 05/17/21 19:15 92 23 98/50 (66) 95 Nasal Cannula 2.00 05/17/21 19:00 89 05/17/21 18:00 94 25 116/67 (83) 98 Nasal Cannula 2.00 05/17/21 17:00 96 23 114/67 (83) 96 Nasal Cannula 2.00 05/17/21 16:00 98 28 135/71 (92) 97 Nasal Cannula 2.00 05/17/21 15:59 36.7 05/17/21 15:00 98 18 134/72 (92) 96 Nasal Cannula 2.00 05/17/21 14:55 36.1 101 94 05/17/21 14:00 101 10 128/76 (93) 94 Nasal Cannula 2.00 05/17/21 13:30 Nasal Cannula 2.00 05/17/21 13:30 100 22 130/65 (86) 91 Nasal Cannula 2.00 05/17/21 13:24 102 05/17/21 13:15 36.1 Nasal Cannula 2.00 05/17/21 13:03 96 20 112/63 94 Nasal Cannula 3.00 I & O 05/18/21 07:00 Intake Total 6915 ml Output Total 1450 ml Balance 5465 ml Height & Weight Height: '" Weight: lbs. oz. kg; 27.98 BMI Method: General Appearance: No Apparent Distress, WD/WN HEENT: PERRL/EOMI, Other (dry mucous membranes) Neck: Normal Inspection, Supple Respiratory: Lungs Clear, No Respiratory Distress Cardiovascular: Regular Rate, Rhythm, No Edema, No Murmur Capillary Refill: Less Than 3 Seconds Peripheral Pulses: 2+ Radial Pulses (R), 2+ Radial Pulses (L) Extremity: Normal Inspection, Non Tender, No Pedal Edema Neurologic/Psychiatric: Alert, No Motor/Sensory Deficits, Disoriented Skin: Normal Color, Warm/Dry Results Lab Laboratory Tests 05/17/21 10:09 05/17/21 13:31 05/17/21 15:11 05/17/21 16:52 05/17/21 18:32 05/18/21 05:17 Assessment/Plan Assessment/Plan (Tele-ICU Physician , Progress Note ) Available chart/ vitals / labs / Images reviewed Video assessment done using teleICU camera, rest of exam as per RN Discussed with RN , EXAM PER RN Events overnight : Afebrile FiO2 - 2l I/O = pos 3700 Drips: Pressors: , hemodynamically stable Consultants: Hospital course: 05/17 - DKA, AMS , HARRIS A/P DKA Insulin drip continue to monitor for resolution of acidosis, AG and electrolytes. - hopefully will stop gtt today Continue hydration - decrease rate HARRIS - dehydration, hypotension - simproved from 2.9-->1.7 - cont IVF - follow closely Leukocytosis with elev PCT ( NEG covid and flu) - started on cefepime vanco 05/17 - follow cx Elv lactate - -possible sepsis and mild hypoxia -resolved elv trop - ? demand , follow Encephalopathy- AAO x1 --? due to above -CTH and cerv spine CT - no acute finding 05/17 Hypoxia - mild , on RA now Lines : (Central Line Necessity Reviewed) Boyle: 05/17 OG: Nutrition: npo Analgesia: Anxiety/ delirium VTE Prophylaxis: started on lovenox - WILL RECINOS TO HEPARIN IF WORSENING GFR Stress Ulcer Prophylaxis: po Plans in collaboration with bedside consultants and IM MDs. Discussed with RN to reach out if any questions or concerns A total of 35 minutes of critical care time was devoted to this patient today, required to treat and/or prevent further deterioration of critical care condition ( as above ) . AMIRA JUAREZ MD May 18, 2021 10:46
[2021-05-18] MEDS ORDERED: TMSL.4C PO (12:31)
[2021-05-18] MEDS ORDERED: SENN-234 PO (12:31)
[2021-05-18] MEDS ORDERED: FOLI0.4T6 PO (12:31)
[2021-05-18] MEDS ORDERED: POLY17PO6 PO (12:31)
[2021-05-18] MEDS ORDERED: ATOR80TA76 PO (12:31)
[2021-05-18] MEDS ORDERED: ASPI325T32 PO (12:31)
[2021-05-18] MEDS ORDERED: METO100T12 PO (12:31)
[2021-05-18] MEDS ORDERED: SPIR25TA5 PO (12:31)
[2021-05-18] MEDS ORDERED: CHOL100048 PO (12:31)
[2021-05-18] MEDS ORDERED: METF-478 PO (12:31)
[2021-05-18] MEDS ORDERED: LISI40TA9 PO (12:31)
[2021-05-18] MEDS ORDERED: CLN.2T PO (12:31)
[2021-05-18] MEDS ORDERED: AMLO-251 PO (12:31)
[2021-05-18] MEDS ORDERED: POTA-51 PO ×2 (12:31)
[2021-05-18] MEDS ORDERED: PRAZ5CAP2 PO (12:31)
[2021-05-18] MEDS ORDERED: MAGN400T39 PO (12:31)
[2021-05-18 14:09] LABS: CALCIUM 8.4 MG/DL (8.5-10.1); CREATININE SERUM 1.61 MG/DL (0.60-1.30); POTASSIUM 4.3 MMOL/L (3.6-5.0)
[2021-05-18] MEDS: ENOXAPARIN 40 MG/0.4 ML (LOVENOX) SYR SC SCH (14:52)
--- NOTE | 2021-05-18 18:33 | Progress Note - Hospitalist ---
Subjective HPI/CC On Admission Date Seen by Provider: May 18, 2021 Time Seen by Provider: 09:30 Khris Dc is a 76 year old male with PMH HTN, HLD, T2DM, mesothelioma, dementia, who presented with weakness. He is a poor historian. According to ER, he was weak and tired over recent weeks. He was also having decreased appetite and intake. He denies pain. He denies shortness of breath. Subjective/Events-last exam He is feeling better. He has been eating and drinking. He denies pain. He denies shortness of breath. Focused Exam Lactate Level 05/17/21 12:48: Lactic Acid Level 3.50*H 05/17/21 18:32: Lactic Acid Level 3.16*H 05/17/21 22:08: Lactic Acid Level 1.87 Time of Focused Exam: 11:16 Objective Exam Vital Signs Vital Signs Date Time Temp Pulse Resp B/P (MAP) Pulse Ox O2 Delivery O2 Flow Rate FiO2 05/18/21 18:00 99 23 115/68 (84) 93 Room Air 05/18/21 15:55 36.6 05/18/21 14:00 2.00 Capillary Refill : Less Than 3 Seconds General Appearance: No Apparent Distress, WD/WN Respiratory: Lungs Clear, No Respiratory Distress Cardiovascular: Regular Rate, Rhythm, No Murmur Gastrointestinal: Normal Bowel Sounds, Soft Extremity: Normal Inspection, No Pedal Edema Neurologic/Psychiatric: Alert, Normal Mood/Affect Skin: Normal Color, Warm/Dry Results/Procedures Lab Laboratory Tests 05/17/21 18:32 05/18/21 05:17 05/18/21 13:40 Patient resulted labs reviewed. Imaging: Reviewed Imaging Report Assessment/Plan Assessment and Plan Assess & Plan/Chief Complaint T2DM with HHS HARRIS Continue insulin drip IV fluids Begin Levemir Possibly transition off insulin drip today Hold Metformin PNA Acute respiratory failure with hypoxia Zosyn Off supplemental oxygen HTN HLD BPH Dementia Resume some home meds Hold Lisinopril and Prazosin Hold Spironolactone DVT prophylaxis: Lovenox Lactic acidosis, resolved Diagnosis/Problems Diagnosis/Problems (1) Type 2 diabetes mellitus with hyperosmolar hyperglycemic state (HHS) Status: Acute (2) Lactic acidosis Status: Resolved Resolution Date/Time: 05/18/21 @ 18:33 (3) Acute kidney injury Status: Acute (4) Acute respiratory failure with hypoxemia Status: Resolved Resolution Date/Time: 05/18/21 @ 18:33 (5) Pneumonia Status: Acute Qualifiers: Pneumonia type: due to unspecified organism Laterality: unspecified laterality Lung location: unspecified part of lung Qualified Codes: J18.9 - Pneumonia, unspecified organism CAM TRAN MD May 18, 2021 18:33
[2021-05-18] MEDS: meTOprolol TARTRATE 50 MG (LOPRESSOR) TAB PO SCH (20:50)
[2021-05-18] MEDS: cloNIDine 0.2 MG (CATAPRES) TAB PO SCH (20:50)
[2021-05-18] MEDS ORDERED: NON-FORMULARY MEDICATION 1 EA EA (Metoprolol Tartrate 50 MG) PO SCH (21:00)
[2021-05-18] MEDS: inSUlin ASPART (NovoLOG) 1 UNIT/0.01 ML (CHARGE PER UNIT) SC SCH (23:34)
[2021-05-19] VITALS (12 sets, daily range): BP systolic 87–149; BP diastolic 68–97
[2021-05-19] MEDS: POTASSIUM CL 10MEQ/50ML IVPB 50 ML IV SCH ×6 (01:12→11:45)
[2021-05-19] MEDS: CEFEPIME 1,000 MG/NS 50 ML IVPB IV SCH ×8 (01:12→21:59)
[2021-05-19] MEDS: 1/2 NS IV SOLUTION 1,000 ML IV SCH ×3 (03:36→11:44)
[2021-05-19] MEDS: D5 1/2 NS IV 1,000 ML IV SCH ×3 (03:36→11:45)
[2021-05-19 05:06] LABS: BASOPHILS % (AUTO) 0 % (0-10); EOSINOPHILS # (AUTO) 0.3 10^3/uL (0.0-0.3); EOSINOPHILS % (AUTO) 3 % (0-10); HEMATOCRIT 42 % (40-54); HEMOGLOBIN 13.7 g/dL (13.3-17.7); LYMPHOCYTES # (AUTO) 2.3 10^3/uL (1.0-4.0); LYMPHOCYTES % (AUTO) 28 % (12-44); MEAN CORPUSCULAR HEMOGLOBIN 30 pg (25-34); MEAN CORPUSCULAR HGB CONC 32 g/dL (32-36); MEAN CORPUSCULAR VOLUME 92 fL (80-99); MEAN PLATELET VOLUME 10.9 fL (9.0-12.2); MONOCYTES # (AUTO) 0.7 10^3/uL (0.0-1.0); MONOCYTES % (AUTO) 9 % (0-12); NEUTROPHILS # (AUTO) 5.1 10^3/uL (1.8-7.8); NEUTROPHILS % (AUTO) 60 % (42-75); PLATELET COUNT 125 10^3/uL (130-400); WHITE BLOOD COUNT 8.5 10^3/uL (4.3-11.0)
[2021-05-19 05:19] LABS: ALBUMIN 2.8 GM/DL (3.2-4.5)
[2021-05-19 05:20] LABS: POTASSIUM 4.3 MMOL/L (3.6-5.0)
[2021-05-19 05:21] LABS: CALCIUM 8.1 MG/DL (8.5-10.1)
[2021-05-19 05:22] LABS: TOTAL PROTEIN 5.1 GM/DL (6.4-8.2)
[2021-05-19 05:24] LABS: BILIRUBIN,TOTAL 1.3 MG/DL (0.1-1.0)
[2021-05-19] MEDS: KCL 20 MEQ TAB (K-DUR) PO SCH (05:24)
[2021-05-19 05:26] LABS: CREATININE SERUM 1.32 MG/DL (0.60-1.30)
[2021-05-19 05:29] LABS: MAGNESIUM 2.1 MG/DL (1.6-2.4)
[2021-05-19] MEDS: MAGNESIUM 1 GM/100 ML IVPB 100 ML IV SCH (06:05)
[2021-05-19] MEDS: inSUlin ASPART (NovoLOG) 1 UNIT/0.01 ML (CHARGE PER UNIT) SC SCH ×6 (06:05→21:27)
[2021-05-19] MEDS ORDERED: inSUlin ASPART (NovoLOG) 1 UNIT/0.01 ML (CHARGE PER UNIT) SC SCH (07:00)
[2021-05-19] MEDS: RT-ALBUTEROL/IPRATROPIUM 3 ML (DUONEB) VIAL INH SCH ×2 (07:28→21:40)
[2021-05-19] MEDS: amLODIPine 10 MG (NORVASC) TAB PO SCH (08:57)
[2021-05-19] MEDS: cloNIDine 0.2 MG (CATAPRES) TAB PO SCH ×2 (08:57→22:00)
[2021-05-19] MEDS: meTOprolol TARTRATE 50 MG (LOPRESSOR) TAB PO SCH ×2 (08:57→22:00)
[2021-05-19] MEDS ORDERED: polyethylene glycoL POWDER 17 GM (MIRALAX) PACK PO PRN (09:00)
[2021-05-19] MEDS ORDERED: TROUGH ORDER-PHARMACY XX NR (09:00)
[2021-05-19] MEDS: SENNA W/DOCUSATE (SENOKOT S) TABLET PO SCH ×2 (09:40→21:59)
[2021-05-19] MEDS: DOCUSATE SODIUM 100 MG (COLACE) CAP PO SCH ×2 (09:40→22:00)
--- NOTE | 2021-05-19 10:37 | Tele-ICU Progress Note ---
Progress Note PATENT IS TELEMETRY STATUS Video assessment done , Hemodynamically stable Available charting reviewed SIGN OFF " ICU CONSULT " CONTINUE TO MONITOR PER USUAL TELE-ICU PROTOCOL No need for Tele-ICU interventions Plans as delineated by bedside physicians / consultants Focused Exam Lactate Level 05/17/21 12:48: Lactic Acid Level 3.50*H 05/17/21 18:32: Lactic Acid Level 3.16*H 05/17/21 22:08: Lactic Acid Level 1.87 Height, Weight, BMI Height: '" Weight: lbs. oz. kg; 27.98 BMI Method: Time of Focused Exam: 11:16 AMIRA JUAREZ MD May 19, 2021 10:37
--- NOTE | 2021-05-19 11:10 | Occupational Therapy Eval ---
OT Evaluation-General/PLF Medical Diagnosis Admission Date May 17, 2021 at 11:15 Medical Diagnosis: Septic Shock, acute respiratory failure, hypoxia Onset Date: May 17, 2021 Therapy Diagnosis Therapy Diagnosis: decreased ADL status Precautions Precautions/Isolations: Aspiration, Fall Prevention, Standard Precautions, Pressure Ulcer Referral Physician: Suzanna Referral Reason: Evaluation/Treatment Medical History Additional Medical History HTN, HLD, DM, mesothelioma, dementia Current History presents with weakness Social History Home: Single Level Current Living Status: Spouse ADL-Prior Level of Function SCALE: Activities may be completed with or without assistive devices. 3-Hzwvqyswjo-qkdujgy completes the activity by him/herself with no assistance from a helper. 5-Set-up or Clean-up Assistance-helper sets up or cleans up; patient completes activity. Marshall assists only prior to or following the activity. 4-Supervision or Touching Assistance-helper provides verbal cues and/or touching/steadying and/or contact guard assistance as patient completes activity. Assistance may be provided throughout the activity or intermittently. 3-Partial/Moderate Assistance-helper does LESS THAN HALF the effort. Marshall lifts, holds or supports trunk or limbs, but provides less than half the effort. 2-Substantial/Maximal Assistance-helper does MORE THAN HALF the effort. Marshall lifts or holds trunk or limbs and provides more than half the effort. 4-Zhsjofhut-nkmsqh does ALL the effort. Patient does none of the effort to complete the activity. Or, the assistance of 2 or more helpers is required for the patient to complete the activity. If activity was not attempted, code reason: 7-Patient Refused. 9-Not Applicable-not attempted and the patient did not perform the activity before the current illness, exacerbation or injury. 10-Not Attempted due to Environmental Limitations-(lack of equipment, weather restraints, etc.). 88-Not Attempted due to Medical Conditions or Safety Concerns. ADL PLOF Comments Pt reports IND with ADLs and functional mobility at PLOF, using a cane. Pt does indicate he has had increased difficulty completing ADLs lately, but does not state if he required more assistance. Self Care: Independent Functional Cognition: Independent OT Current Status Subjective Pt in recliner, agreeable to OT tx. Pt reports he is very fatigued. Mental Status/Objective Patient Orientation: Person, Place Attachments: Boyle Catheter Current Upper Extremity ROM slightly decreased, BUE shoulder flexion to approx 90 degrees during ADLs. Upper Extremity Strength grossly 3/5 ADL-Treatment Oral Hygiene (QC): 3 (Pt reports requiring assistance rinsing dentures after soaking with tablet) On/Off Footwear (QC): 1 (total assist with shoes.) Other Treatments Pt in recliner, agreeable to OT Tx. Pt requests to return to bed but with encouragement agreeable to staying up in the recliner for a little bit longer. Pt able to wash his face after set up assistance, brushed hair with min A. Pt required increased time with ADLs due to slow movements. Pt unable to comb back of his hair, requiring assistance. OT educated pt on UE exercises in order to increase strength and activity tolerance. Pt completed x5 reps each of the following, BUE: shoulder flexion, elbow flexion/extension and finger flexion /extension. Education OT Patient Education: Correct positioning, Energy conservation, Modified ADL techniques, Progress toward Goal/Update tx plan, Purpose of tx/functional activities, Rehab process Teaching Recipient: Patient Teaching Methods: Discussion Response to Teaching: Verbalize Understanding OT Halfway Goals Halfway Goals Time Frame: Jun 05, 2021 Eating (QC): 6 Oral Hygiene (QC): 5 Toileting Hygiene (QC): 4 Shower/Bathe Self (QC): 4 Upper Body Dressing (QC): 5 Lower Body Dressing (QC): 4 On/Off Footwear (QC): 4 Additional Goals: 1-Demonstrate ADL Tasks, 2-Verbalize Understanding, 3- ImproveStrength/Felton 1=Demonstrate adherence to instructed precautions during ADL tasks. 2=Patient will verbalize/demonstrate understanding of assistive devices/modifications for ADL. 3=Patient will improve strength/tolerance for activity to enable patient to perform ADL's. OT Education/Plan Problem List/Assessment Assessment: Decreased Activ Tolerance, Decreased UE Strength, Impaired Funct Balance, Impaired I ADL's, Impaired Self-Care Skills Discharge Recommendations Plan/Recommendations: Continue POC Treatment Plan/Plan of Care Patient would benefit from OT for education, treatment and training to promote independence in ADL's, mobility, safety and/or upper extremity function for ADL's. Plan of Care: ADL Retraining, Functional Mobility, UE Funct Exercise/Act Treatment Duration: Jun 05, 2021 Frequency: 3 times per week (3-5 times per week) Estimated Hrs Per Day: .25 hour per day Rehab Potential: Fair Time/GCodes Start Time: 10:42 Stop Time: 10:51 Total Time Billed (hr/min): 9 Billed Treatment Time 1, TONYA TAPIA OT May 19, 2021 11:10
--- NOTE | 2021-05-19 11:39 | Physical Therapy Evaluation ---
PT Evaluation-General Medical Diagnosis Admission Date May 17, 2021 at 11:15 Medical Diagnosis: Septic Shock, acute respiratory failure, hypoxia Onset Date: May 17, 2021 Therapy Diagnosis Therapy Diagnosis: weakness, debility Precautions Precautions/Isolations: Aspiration, Fall Prevention, Standard Precautions, Pressure Ulcer Referral Physician: Suzanna Reason for Referral: Evaluation/Treatment Medical History Pertinent Medical History: DM, Dementia, HTN, Smoking Current History Patient presented to ED via personal vehicle due to increased confusion and decreased strength over the past week. Reviewed History: Yes Social History Home: Single Level Current Living Status: Spouse Prior Prior Level of Function SCALE: Activities may be completed with or without assistive devices. 5-Kxwwlhsslc-jxrhnoh completes the activity by him/herself with no assistance from a helper. 5-Set-up or Clean-up Assistance-helper sets up or cleans up; patient completes activity. [place] assists only prior to or following the activity. 4-Supervision or Touching Assistance-helper provides verbal cues and/or touching/steadying and/or contact guard assistance as patient completes activity. Assistance may be provided throughout the activity or intermittently. 3-Partial/Moderate Assistance-helper does LESS THAN HALF the effort. [place] lifts, holds or supports trunk or limbs, but provides less than half the effort. 2-Substantial/Maximal Assistance-helper does MORE THAN HALF the effort. [place] lifts or holds trunk or limbs and provides more than half the effort. 6-Arsvlqawk-fsdjst does ALL the effort. Patient does none of the effort to complete the activity. Or, the assistance of 2 or more helpers is required for the patient to complete the activity. If activity was not attempted, code reason: 7-Patient Refused. 9-Not Applicable-not attempted and the patient did not perform the activity before the current illness, exacerbation or injury. 10-Not Attempted due to Environmental Limitations-(lack of equipment, weather restraints, etc.). 88-Not Attempted due to Medical Conditions or Safety Concerns. Prior Devices Use: Walker Unable to determine due to patient cognitive status and family not in the room at the time of the evaluation. PT Evaluation-Current Subjective Patient presented laying in bed and agreed to participate in therapy. Objective Patient Orientation: Person, Confused Attachments: Boyle Catheter, IV ROM/Strength ROM Lower Extremities WFL Strength Lower Extremities 3+/5 strength bilaterally grossly Integumentary/Posture Bowel Incontinence: Yes (requiring dependent assist to cleanse) Bladder Incontinence: Boyle Cath Neuromuscular (Tone, Coordination, Reflexes) Grossly intact Sensory Vision: Functional Hearing: Functional Transfers Lying to Sitting/Side of Bed(Q: 3 Sit to Stand (QC): 3 Chair/Whq-xw-Sjpgf Xfer(QC): 3 Toilet Transfer (QC): 3 Patient required mod assist for to move to EOB and mod assist for all transfers. Gait Does the Patient Walk?: No and Walking Goal IS indicated Gait Assistive Device: FWW Balance Sitting Static: Normal Sitting Dynamic: Fair Standing Static: Fair Standing Dynamic: Poor Treatment Bed mobility Transfer to commode Transfer to chair Assessment/Needs Patient completed bed mobility and transfers with PT today. Patient required mod assist and frequent cues for transferring to the commode and back to the chair. Due to patient cognitive function patient required mod assist for transfers and hand placement during transfers. Patient left post tx sitting in his chair with chair alarm on, nurse call, phone, and all needs met. Rehab Potential: Guarded PT Snf Goals Snf Goals PT Snf Goals Time Frame: May 30, 2021 Roll Left & Right (QC): 4 Sit to Lying (QC): 4 Lying-Sitting on Side/Bed(QC): 4 Sit to Stand (QC): 4 Chair/Iph-vh-Sqidg Xfer(QC): 4 Toilet Transfer (QC): 4 Walk 10 feet (QC): 4 Walk 50ft with 2 Turns (QC): 4 Walk 150 ft (QC): 4 PT Plan Problem List Problem List: Activity Tolerance, Functional Strength, Safety, Balance, Gait, Transfer, Bed Mobility, ROM Treatment/Plan Treatment Plan: Continue Plan of Care Treatment Plan: Bed Mobility, Education, Functional Activity [place], Functional Strength, Gait, Safety, Therapeutic Exercise, Transfers Treatment Duration: May 30, 2021 Frequency: 6 times per week Estimated Hrs Per Day: .25 hour per day Time/GCodes Time In: 1000 Time Out: 1023 Total Billed Treatment Time: 23 Total Billed Treatment 1 Visit Jaspreet 15 min FA 8 min JENAE SONG PT May 19, 2021 11:39
[2021-05-19] MEDS: VANCOMYCIN 1500 MG/NS 500 ML IVPB IV SCH ×2 (11:43)
[2021-05-19] MEDS: DEXTROSE 10% IV SOLUTION 1,000 ML IV SCH (11:44)
[2021-05-19] MEDS: ENOXAPARIN 40 MG/0.4 ML (LOVENOX) SYR SC SCH (15:45)
[2021-05-19] MEDS ORDERED: ZINC OXIDE 16% OINT (BUTT PASTE) 57 GM TUBE TOP PRN (16:15)
[2021-05-19] MEDS: TAMSULOSIN 0.4 MG (FLOMAX) CAP PO SCH (18:27)
--- NOTE | 2021-05-19 18:48 | Progress Note - Hospitalist ---
Subjective HPI/CC On Admission Date Seen by Provider: May 19, 2021 Time Seen by Provider: 09:50 Khris Dc is a 76 year old male with PMH HTN, HLD, T2DM, mesothelioma, dementia, who presented with weakness. He is a poor historian. According to ER, he was weak and tired over recent weeks. He was also having decreased appetite and intake. He denies pain. He denies shortness of breath. Subjective/Events-last exam He is feeling better. He denies pain. He is not short of breath. He has no complaints. Focused Exam Lactate Level 05/17/21 12:48: Lactic Acid Level 3.50*H 05/17/21 18:32: Lactic Acid Level 3.16*H 05/17/21 22:08: Lactic Acid Level 1.87 Time of Focused Exam: 11:16 Objective Exam Vital Signs Vital Signs Date Time Temp Pulse Resp B/P (MAP) Pulse Ox O2 Delivery O2 Flow Rate FiO2 05/19/21 15:36 36.8 05/19/21 12:49 80 05/19/21 11:50 87/68 (74) 93 Room Air 05/19/21 08:00 10 05/18/21 14:00 2.00 Capillary Refill : Less Than 3 Seconds General Appearance: No Apparent Distress, WD/WN Respiratory: Lungs Clear, No Respiratory Distress Cardiovascular: Regular Rate, Rhythm, No Murmur Gastrointestinal: Normal Bowel Sounds, Soft Extremity: Normal Inspection, No Pedal Edema Neurologic/Psychiatric: Alert, Normal Mood/Affect Skin: Normal Color, Warm/Dry Results/Procedures Lab Laboratory Tests 05/19/21 04:23 05/19/21 04:25 Patient resulted labs reviewed. Imaging: Reviewed Imaging Report Assessment/Plan Assessment and Plan Assess & Plan/Chief Complaint f dT2DM with HHS HARRIS Increase Levemir Increase Novolog with meals Sliding scale insulin Resume Metformin PNA Zosyn HTN HLD BPH Dementia Resume some home meds Hold Lisinopril and Prazosin Hold Spironolactone DVT prophylaxis: Lovenox Lactic acidosis, resolved Acute respiratory failure with hypoxia, resolved Diagnosis/Problems Diagnosis/Problems (1) Type 2 diabetes mellitus with hyperosmolar hyperglycemic state (HHS) Status: Acute (2) Lactic acidosis Status: Resolved Resolution Date/Time: 05/18/21 @ 18:33 (3) Acute kidney injury Status: Acute (4) Acute respiratory failure with hypoxemia Status: Resolved Resolution Date/Time: 05/18/21 @ 18:33 (5) Pneumonia Status: Acute Qualifiers: Pneumonia type: due to unspecified organism Laterality: unspecified laterality Lung location: unspecified part of lung Qualified Codes: J18.9 - Pneumonia, unspecified organism CAM TRAN MD May 19, 2021 18:48
[2021-05-19] MEDS: MICONAZOLE 2% POWDER (DESENEX AF) 90 GM TOP SCH ×2 (19:26→22:11)
[2021-05-20] VITALS (8 sets, daily range): BP systolic 99–125; BP diastolic 62–78
[2021-05-20] MEDS: CEFEPIME 1,000 MG/NS 50 ML IVPB IV SCH ×8 (02:52→20:52)
[2021-05-20 05:50] LABS: BASOPHILS % (AUTO) 0 % (0-10); EOSINOPHILS # (AUTO) 0.3 10^3/uL (0.0-0.3); EOSINOPHILS % (AUTO) 4 % (0-10); HEMATOCRIT 43 % (40-54); HEMOGLOBIN 13.9 g/dL (13.3-17.7); LYMPHOCYTES # (AUTO) 2.2 10^3/uL (1.0-4.0); LYMPHOCYTES % (AUTO) 27 % (12-44); MEAN CORPUSCULAR HEMOGLOBIN 30 pg (25-34); MEAN CORPUSCULAR HGB CONC 33 g/dL (32-36); MEAN CORPUSCULAR VOLUME 92 fL (80-99); MEAN PLATELET VOLUME 10.9 fL (9.0-12.2); MONOCYTES # (AUTO) 0.7 10^3/uL (0.0-1.0); MONOCYTES % (AUTO) 8 % (0-12); NEUTROPHILS % (AUTO) 60 % (42-75); PLATELET COUNT 124 10^3/uL (130-400); WHITE BLOOD COUNT 8.3 10^3/uL (4.3-11.0)
[2021-05-20 05:55] LABS: ALBUMIN 2.9 GM/DL (3.2-4.5)
[2021-05-20 05:56] LABS: POTASSIUM 3.7 MMOL/L (3.6-5.0)
[2021-05-20 05:57] LABS: CALCIUM 8.4 MG/DL (8.5-10.1)
[2021-05-20 05:58] LABS: TOTAL PROTEIN 5.3 GM/DL (6.4-8.2)
[2021-05-20 06:00] LABS: BILIRUBIN,TOTAL 1.3 MG/DL (0.1-1.0)
[2021-05-20 06:02] LABS: CREATININE SERUM 1.21 MG/DL (0.60-1.30)
[2021-05-20] MEDS: inSUlin ASPART (NovoLOG) 1 UNIT/0.01 ML (CHARGE PER UNIT) SC SCH ×7 (07:00→20:00)
[2021-05-20] MEDS ORDERED: TROUGH ORDER-PHARMACY XX NR (09:00)
[2021-05-20] MEDS: DOCUSATE SODIUM 100 MG (COLACE) CAP PO SCH ×2 (09:21→20:56)
[2021-05-20] MEDS: SENNA W/DOCUSATE (SENOKOT S) TABLET PO SCH ×2 (09:21→20:56)
[2021-05-20] MEDS: amLODIPine 10 MG (NORVASC) TAB PO SCH (09:21)
[2021-05-20] MEDS: meTOprolol TARTRATE 50 MG (LOPRESSOR) TAB PO SCH ×2 (09:21→20:53)
[2021-05-20] MEDS: cloNIDine 0.2 MG (CATAPRES) TAB PO SCH ×2 (09:21→20:52)
[2021-05-20] MEDS: MICONAZOLE 2% POWDER (DESENEX AF) 90 GM TOP SCH ×2 (09:32→20:53)
[2021-05-20] MEDS: ENOXAPARIN 40 MG/0.4 ML (LOVENOX) SYR SC SCH (12:06)
--- NOTE | 2021-05-20 13:12 | Occupational Ther Daily Note ---
OT Current Status-Daily Note Subjective Pt alert, sitting on toilet. Pt agrees to therapy. No c/o pain. Pt wants to have a laxative, reported to nrsg. Mental Status/Objective Patient Orientation: Person, Place Attachments: IV ADL-Treatment Mod A for sit to stand from low surface. Pt able to cleanse self after BM. CGA to ambulate from toilet to bed. Min A for bed mobility. After session, pt ly ing in bed with call light/phone in reach. All needs met in room. Therapy Code Descriptions/Definitions Functional [place] Measure: 0=Not Assessed/NA 4=Minimal Assistance 1=Total Assistance 5=Supervision or Setup 2=Maximal Assistance 6=Modified [place] 3=Moderate Assistance 7=Complete IndependenceSCALE: Activities may be completed with or without assistive devices. 4-Umbscnfiaz-cunzfqc completes the activity by him/herself with no assistance from a helper. 5-Set-up or Clean-up Assistance-helper sets up or cleans up; patient completes activity. [place] assists only prior to or following the activity. 4-Supervision or Touching Assistance-helper provides verbal cues and/or touching/steadying and/or contact guard assistance as patient completes activity. Assistance may be provided throughout the activity or intermittently. 3-Partial/Moderate Assistance-helper does LESS THAN HALF the effort. [place] lifts, holds or supports trunk or limbs, but provides less than half the effort. 2-Substantial/Maximal Assistance-helper does MORE THAN HALF the effort. [place] lifts or holds trunk or limbs and provides more than half the effort. 8-Zahqoktoi-vctiwr does ALL the effort. Patient does none of the effort to complete the activity. Or, the assistance of 2 or more helpers is required for the patient to complete the activity. If activity was not attempted, code reason: 7-Patient Refused. 9-Not Applicable-not attempted and the patient did not perform the activity before the current illness, exacerbation or injury. 10-Not Attempted due to Environmental Limitations-(lack of equipment, weather restraints, etc.). 88-Not Attempted due to Medical Conditions or Safety Concerns. Toileting Hygiene (QC): 4 OT Insulation Board Calender Operator Goals Insulation Board Calender Operator Goals Time Frame: Jun 05, 2021 Eating (QC): 6 Oral Hygiene (QC): 5 Toileting Hygiene (QC): 4 Shower/Bathe Self (QC): 4 Upper Body Dressing (QC): 5 Lower Body Dressing (QC): 4 On/Off Footwear (QC): 4 Additional Goals: 1-Demonstrate ADL Tasks, 2-Verbalize Understanding, 3- ImproveStrength/[place] 1=Demonstrate adherence to instructed precautions during ADL tasks. 2=Patient will verbalize/demonstrate understanding of assistive devices/modifications for ADL. 3=Patient will improve strength/tolerance for activity to enable patient to perform ADL's. OT Education/Plan Problem List/Assessment Assessment: Decreased Activ Tolerance, Impaired Bed Mobility, Impaired Self- Care Skills Discharge Recommendations Plan/Recommendations: Continue POC Treatment Plan/Plan of Care Patient would benefit from OT for education, treatment and training to promote independence in ADL's, mobility, safety and/or upper extremity function for ADL's. Plan of Care: ADL Retraining, Functional Mobility, UE Funct Exercise/Act Treatment Duration: Jun 05, 2021 Frequency: 3 times per week (3-5 times per week) Estimated Hrs Per Day: .25 hour per day Rehab Potential: Guarded Time/GCodes Start Time: 13:00 Stop Time: 13:10 Total Time Billed (hr/min): 10 Billed Treatment Time 1 visit-ADL 1 (10 min) VICENTE TRONCOSO May 20, 2021 13:12
--- NOTE | 2021-05-20 14:57 | Physical Therapy Daily Note ---
PT Daily Note-Current Subjective Pt. in bed spine, does not open eyes but does moan when addressed. Pt. weakly speaks one time stating he is so tired. Otherwise pt. does not respond even though spoken to many times in attempt to stimulate him Pain Location: No Pain Reported Mental Status Patient Orientation: Confused, Mumbles, Listless Attachments: Oxygen Transfers SCALE: Activities may be completed with or without assistive devices. 7-Fyydxgkhwe-hcwilhk completes the activity by him/herself with no assistance from a helper. 5-Set-up or Clean-up Assistance-helper sets up or cleans up; patient completes activity. [place] assists only prior to or following the activity. 4-Supervision or Touching Assistance-helper provides verbal cues and/or touching/steadying and/or contact guard assistance as patient completes activity. Assistance may be provided throughout the activity or intermittently. 3-Partial/Moderate Assistance-helper does LESS THAN HALF the effort. [place] lifts, holds or supports trunk or limbs, but provides less than half the effort. 2-Substantial/Maximal Assistance-helper does MORE THAN HALF the effort. [place] lifts or holds trunk or limbs and provides more than half the effort. 8-Mlfmxobcs-laigum does ALL the effort. Patient does none of the effort to complete the activity. Or, the assistance of 2 or more helpers is required for the patient to complete the activity. If activity was not attempted, code reason: 7-Patient Refused. 9-Not Applicable-not attempted and the patient did not perform the activity before the current illness, exacerbation or injury. 10-Not Attempted due to Environmental Limitations-(lack of equipment, weather restraints, etc.). 88-Not Attempted due to Medical Conditions or Safety Concerns. max assist to roll to side Exercises Supine Ex: Ankle pumps, Rolling, Heel Slides, Straight leg raise, Hip abd/add Supine Reps: 10 Treatments passive ROM LEs x 10 as above described. Assessment Current Status: Poor Progress unable to rouse pt. , no volitional movement, PROM only, did not open eyes , moaned a few times to attempt to answer questions PT Conduit Installer Goals Conduit Installer Goals PT Conduit Installer Goals Time Frame: May 30, 2021 Roll Left & Right (QC): 4 Sit to Lying (QC): 4 Lying-Sitting on Side/Bed(QC): 4 Sit to Stand (QC): 4 Chair/Ems-yh-Widda Xfer(QC): 4 Toilet Transfer (QC): 4 Walk 10 feet (QC): 4 Walk 50ft with 2 Turns (QC): 4 Walk 150 ft (QC): 4 PT Plan Treatment/Plan Treatment Plan: Continue Plan of Care Treatment Plan: Bed Mobility, Education, Functional Activity [place], Functional Strength, Gait, Safety, Therapeutic Exercise, Transfers Treatment Duration: May 30, 2021 Frequency: 6 times per week Estimated Hrs Per Day: .25 hour per day Time/GCodes Time In: 1430 Time Out: 1445 Total Billed Treatment Time: 15 Total Billed Treatment 1,EX15m DES MEADE HOGSHEAD STRIPPER May 20, 2021 14:57
[2021-05-20] MEDS: TAMSULOSIN 0.4 MG (FLOMAX) CAP PO SCH (18:03)
--- NOTE | 2021-05-20 19:16 | Progress Note - Hospitalist ---
Subjective HPI/CC On Admission Date Seen by Provider: May 20, 2021 Time Seen by Provider: 09:50 Khris Dc is a 76 year old male with PMH HTN, HLD, T2DM, mesothelioma, dementia, who presented with weakness. He is a poor historian. According to ER, he was weak and tired over recent weeks. He was also having decreased appetite and intake. He denies pain. He denies shortness of breath. Subjective/Events-last exam He is sitting in his chair. He has no complaints. He has family visiting. Focused Exam Lactate Level 05/17/21 22:08: Lactic Acid Level 1.87 Time of Focused Exam: 11:16 Objective Exam Vital Signs Vital Signs Date Time Temp Pulse Resp B/P (MAP) Pulse Ox O2 Delivery O2 Flow Rate FiO2 05/20/21 16:36 37.2 67 20 121/66 (84) 95 Room Air 05/18/21 14:00 2.00 Capillary Refill : Less Than 3 Seconds General Appearance: No Apparent Distress, WD/WN Respiratory: Lungs Clear, No Respiratory Distress Cardiovascular: Regular Rate, Rhythm, No Murmur Gastrointestinal: Normal Bowel Sounds, Soft Extremity: Normal Inspection, No Pedal Edema Neurologic/Psychiatric: Alert, Normal Mood/Affect, Motor Weakness Skin: Normal Color, Warm/Dry Results/Procedures Lab Laboratory Tests 05/20/21 05:25 Patient resulted labs reviewed. Imaging: Reviewed Imaging Report Assessment/Plan Assessment and Plan Assess & Plan/Chief Complaint T2DM Continue Levemir Continue Novolog with meals Sliding scale insulin Resume Metformin PNA Zosyn HTN HLD BPH Dementia Resume some home meds Hold Lisinopril and Prazosin Hold Spironolactone DVT prophylaxis: Lovenox Lactic acidosis, resolved Acute respiratory failure with hypoxia, resolved HHS, resolved HARRIS, resolved Diagnosis/Problems Diagnosis/Problems (1) Type 2 diabetes mellitus with hyperosmolar hyperglycemic state (HHS) Status: Acute (2) Lactic acidosis Status: Resolved Resolution Date/Time: 05/18/21 @ 18:33 (3) Acute kidney injury Status: Resolved Resolution Date/Time: 05/20/21 @ 19:16 (4) Acute respiratory failure with hypoxemia Status: Resolved Resolution Date/Time: 05/18/21 @ 18:33 (5) Pneumonia Status: Acute Qualifiers: Pneumonia type: due to unspecified organism Laterality: unspecified laterality Lung location: unspecified part of lung Qualified Codes: J18.9 - Pneumonia, unspecified organism CAM TRAN MD May 20, 2021 19:16
[2021-05-21] MEDS: CEFEPIME 1,000 MG/NS 50 ML IVPB IV SCH ×8 (03:17→21:17)
[2021-05-21 05:00] VITALS: BP 115/76
[2021-05-21 05:43] VITALS: BP 115/68
[2021-05-21] MEDS: inSUlin ASPART (NovoLOG) 1 UNIT/0.01 ML (CHARGE PER UNIT) SC SCH ×7 (05:46→20:05)
[2021-05-21 05:55] LABS: MEAN CORPUSCULAR VOLUME 93 fL (80-99); NEUTROPHILS % (AUTO) 59 % (42-75)
[2021-05-21 05:58] LABS: BASOPHILS % (AUTO) 0 % (0-10); EOSINOPHILS # (AUTO) 0.3 10^3/uL (0.0-0.3); EOSINOPHILS % (AUTO) 4 % (0-10); HEMATOCRIT 41 % (40-54); HEMOGLOBIN 13.2 g/dL (13.3-17.7); LYMPHOCYTES % (AUTO) 26 % (12-44); MEAN CORPUSCULAR HEMOGLOBIN 30 pg (25-34); MEAN CORPUSCULAR HGB CONC 32 g/dL (32-36); MEAN PLATELET VOLUME 10.8 fL (9.0-12.2); MONOCYTES # (AUTO) 0.7 10^3/uL (0.0-1.0); MONOCYTES % (AUTO) 9 % (0-12); NEUTROPHILS # (AUTO) 4.4 10^3/uL (1.8-7.8); PLATELET COUNT 117 10^3/uL (130-400); WHITE BLOOD COUNT 7.4 10^3/uL (4.3-11.0)
[2021-05-21] MEDS: metFORMIN 500 MG (GLUCOPHAGE) TAB PO SCH ×2 (05:58→17:15)
[2021-05-21 06:20] LABS: ALBUMIN 2.7 GM/DL (3.2-4.5); POTASSIUM 3.5 MMOL/L (3.6-5.0)
[2021-05-21 06:24] LABS: BILIRUBIN,TOTAL 0.8 MG/DL (0.1-1.0)
[2021-05-21 06:26] LABS: CREATININE SERUM 1.18 MG/DL (0.60-1.30)
[2021-05-21] MEDS: DOCUSATE SODIUM 100 MG (COLACE) CAP PO SCH ×2 (08:02→19:47)
[2021-05-21] MEDS: cloNIDine 0.2 MG (CATAPRES) TAB PO SCH (08:03)
[2021-05-21] MEDS: SENNA W/DOCUSATE (SENOKOT S) TABLET PO SCH ×2 (08:03→19:47)
[2021-05-21] MEDS: meTOprolol TARTRATE 50 MG (LOPRESSOR) TAB PO SCH ×2 (08:51→21:16)
[2021-05-21] MEDS: MICONAZOLE 2% POWDER (DESENEX AF) 90 GM TOP SCH ×2 (08:53→21:16)
[2021-05-21] MEDS: amLODIPine 10 MG (NORVASC) TAB PO SCH (08:53)
[2021-05-21 08:59] VITALS: BP 107/67
[2021-05-21] MEDS ORDERED: MAGNESIUM CITRATE 300 ML BTL PO ONE (11:00)
--- NOTE | 2021-05-21 11:53 | Occupational Ther Daily Note ---
OT Current Status-Daily Note Subjective Pt alert, lying in bed. Pt states that he has not had a BM in a week and told doctor this. MÁRQUEZ reminded pt that he did have BM yesterday, pt states he does not remember this and is hurting because he cannot go. Mental Status/Objective Patient Orientation: Person, Confused ADL-Treatment CGA for supine to EOB. Min A for sit to stand with high surface. Pt incontinent in bed. Pt instructed to ambulate to bathroom due to incontinence. Pt able to cleanse self, assist for thoroughness. Assist to don brief over feet then over hips. Mod A x2 for sit to stand from low surface(17"). Pt then able to ambulated across room and back 2x's before sitting in recliner. After therapy, pt sitting in recliner with call light/phone in reach. Safety measures in place. Therapy Code Descriptions/Definitions Functional [place] Measure: 0=Not Assessed/NA 4=Minimal Assistance 1=Total Assistance 5=Supervision or Setup 2=Maximal Assistance 6=Modified [place] 3=Moderate Assistance 7=Complete IndependenceSCALE: Activities may be completed with or without assistive devices. 2-Huuymozulk-qvttjda completes the activity by him/herself with no assistance from a helper. 5-Set-up or Clean-up Assistance-helper sets up or cleans up; patient completes activity. [place] assists only prior to or following the activity. 4-Supervision or Touching Assistance-helper provides verbal cues and/or touching/steadying and/or contact guard assistance as patient completes activity. Assistance may be provided throughout the activity or intermittently. 3-Partial/Moderate Assistance-helper does LESS THAN HALF the effort. [place] lifts, holds or supports trunk or limbs, but provides less than half the effort. 2-Substantial/Maximal Assistance-helper does MORE THAN HALF the effort. [place] lifts or holds trunk or limbs and provides more than half the effort. 7-Bmnpcjuwe-yqefua does ALL the effort. Patient does none of the effort to complete the activity. Or, the assistance of 2 or more helpers is required for the patient to complete the activity. If activity was not attempted, code reason: 7-Patient Refused. 9-Not Applicable-not attempted and the patient did not perform the activity before the current illness, exacerbation or injury. 10-Not Attempted due to Environmental Limitations-(lack of equipment, weather restraints, etc.). 88-Not Attempted due to Medical Conditions or Safety Concerns. OT Auto Service Dispatcher Goals Senior Care Goals Time Frame: Jun 05, 2021 Eating (QC): 6 Oral Hygiene (QC): 5 Toileting Hygiene (QC): 4 Shower/Bathe Self (QC): 4 Upper Body Dressing (QC): 5 Lower Body Dressing (QC): 4 On/Off Footwear (QC): 4 Additional Goals: 1-Demonstrate ADL Tasks, 2-Verbalize Understanding, 3- ImproveStrength/[place] 1=Demonstrate adherence to instructed precautions during ADL tasks. 2=Patient will verbalize/demonstrate understanding of assistive devices/modifi cations for ADL. 3=Patient will improve strength/tolerance for activity to enable patient to perform ADL's. OT Education/Plan Problem List/Assessment Assessment: Decreased Activ Tolerance, Decreased Safety Aware, Impaired Self- Care Skills Discharge Recommendations Plan/Recommendations: Continue POC Treatment Plan/Plan of Care Patient would benefit from OT for education, treatment and training to promote independence in ADL's, mobility, safety and/or upper extremity function for ADL's. Plan of Care: ADL Retraining, Functional Mobility, UE Funct Exercise/Act Treatment Duration: Jun 05, 2021 Frequency: 3 times per week (3-5 times per week) Estimated Hrs Per Day: .25 hour per day Rehab Potential: Guarded Time/GCodes Start Time: 11:10 Stop Time: 11:33 Total Time Billed (hr/min): 23 Billed Treatment Time 1 visit-ADL 2 (23 min) VICENTE TRONCOSO May 21, 2021 11:53
--- NOTE | 2021-05-21 11:54 | Physical Therapy Daily Note ---
PT Daily Note-Current Subjective Patient presented laying in bed and agreed to participate in therapy. Mental Status Patient Orientation: Person, Confused Transfers SCALE: Activities may be completed with or without assistive devices. 9-Hizwdkvxjo-mfeyjor completes the activity by him/herself with no assistance from a helper. 5-Set-up or Clean-up Assistance-helper sets up or cleans up; patient completes activity. [place] assists only prior to or following the activity. 4-Supervision or Touching Assistance-helper provides verbal cues and/or touching/steadying and/or contact guard assistance as patient completes activity. Assistance may be provided throughout the activity or intermittently. 3-Partial/Moderate Assistance-helper does LESS THAN HALF the effort. [place] lifts, holds or supports trunk or limbs, but provides less than half the effort. 2-Substantial/Maximal Assistance-helper does MORE THAN HALF the effort. [place] lifts or holds trunk or limbs and provides more than half the effort. 8-Yimyiewem-lnaaxa does ALL the effort. Patient does none of the effort to complete the activity. Or, the assistance of 2 or more helpers is required for the patient to complete the activity. If activity was not attempted, code reason: 7-Patient Refused. 9-Not Applicable-not attempted and the patient did not perform the activity before the current illness, exacerbation or injury. 10-Not Attempted due to Environmental Limitations-(lack of equipment, weather restraints, etc.). 88-Not Attempted due to Medical Conditions or Safety Concerns. Lying to Sitting/Side of Bed(Q: 3 Sit to Stand (QC): 3 Chair/Sxu-ui-Xfrdb Xfer(QC): 3 Toilet Transfer (QC): 3 Patient required min/mod assist for all transfers. Gait Training Does the Patient Walk?: Yes Distance: 100' Walk 10 feet (QC): 4 Walk 50 ft with 2 Turns(QC): 4 Gait Assistive Device: FWW Patient ambulated with CGA for 100'. Patient reported he did not want to walk in the moreira but completed laps in his room. Assessment Patient performed all transfers with min/mod assist. Patient had BM in bed but was able to ambulate to the bathroom to finish the BM. Patient ambulated within his room for 100' with CGA and FWW. Patient was left post tx in chair with phone, nurse call, chair alarm set and all needs met. PT Erp Programmer Goals Erp Programmer Goals PT Assisted Goals Time Frame: May 30, 2021 Roll Left & Right (QC): 4 Sit to Lying (QC): 4 Lying-Sitting on Side/Bed(QC): 4 Sit to Stand (QC): 4 Chair/Ttr-ms-Xdbcr Xfer(QC): 4 Toilet Transfer (QC): 4 Walk 10 feet (QC): 4 Walk 50ft with 2 Turns (QC): 4 Walk 150 ft (QC): 4 PT Plan Problem List Problem List: Activity Tolerance, Functional Strength, Safety, Balance, Gait, Transfer, Bed Mobility, ROM Treatment/Plan Treatment Plan: Continue Plan of Care Treatment Plan: Bed Mobility, Education, Functional Activity [place], Functional Strength, Gait, Safety, Therapeutic Exercise, Transfers Treatment Duration: May 30, 2021 Frequency: 6 times per week Estimated Hrs Per Day: .25 hour per day Time/GCodes Time In: 1115 Time Out: 1133 Total Billed Treatment Time: 18 Total Billed Treatment 1 Visit FA 18 min JENAE SONG PT May 21, 2021 11:54
[2021-05-21] MEDS: ENOXAPARIN 40 MG/0.4 ML (LOVENOX) SYR SC SCH (11:57)
[2021-05-21 12:01] VITALS: BP 114/66
--- NOTE | 2021-05-21 12:31 | Progress Note - Hospitalist ---
Subjective HPI/CC On Admission Date Seen by Provider: May 21, 2021 Time Seen by Provider: 10:40 Khris Dc is a 76 year old male with PMH HTN, HLD, T2DM, mesothelioma, dementia, who presented with weakness. He is a poor historian. According to ER, he was weak and tired over recent weeks. He was also having decreased appetite and intake. He denies pain. He denies shortness of breath. Subjective/Events-last exam He has no complaints. He denies pain. He denies breathing trouble. Focused Exam Time of Focused Exam: 11:16 Objective Exam Vital Signs Vital Signs Date Time Temp Pulse Resp B/P (MAP) Pulse Ox O2 Delivery O2 Flow Rate FiO2 05/21/21 12:01 36.2 106 20 114/66 (82) 96 Room Air 05/18/21 14:00 2.00 Capillary Refill : Less Than 3 Seconds General Appearance: No Apparent Distress, Chronically ill Respiratory: Lungs Clear, No Respiratory Distress Cardiovascular: Regular Rate, Rhythm, No Murmur Gastrointestinal: Normal Bowel Sounds, Soft Extremity: Normal Inspection, Pedal Edema Neurologic/Psychiatric: Alert, Motor Weakness Skin: Normal Color, Warm/Dry Results/Procedures Lab Laboratory Tests 05/21/21 05:42 Patient resulted labs reviewed. Imaging: Reviewed Imaging Report Assessment/Plan Assessment and Plan Assess & Plan/Chief Complaint T2DM Continue Levemir Continue Novolog with meals Sliding scale insulin Continue Metformin Debility PT/OT PNA Zosyn HTN Continue amlodipine and metoprolol Stop Clonidine Holding Spironolactone, Lisinopril and Prazosin HLD BPH Dementia Resumed some home meds DVT prophylaxis: Lovenox Lactic acidosis, resolved Acute respiratory failure with hypoxia, resolved HHS, resolved HARRIS, resolved Diagnosis/Problems Diagnosis/Problems (1) Type 2 diabetes mellitus with hyperosmolar hyperglycemic state (HHS) Status: Acute (2) Lactic acidosis Status: Resolved Resolution Date/Time: 05/18/21 @ 18:33 (3) Acute kidney injury Status: Resolved Resolution Date/Time: 05/20/21 @ 19:16 (4) Acute respiratory failure with hypoxemia Status: Resolved Resolution Date/Time: 05/18/21 @ 18:33 (5) Pneumonia Status: Acute Qualifiers: Pneumonia type: due to unspecified organism Laterality: unspecified laterality Lung location: unspecified part of lung Qualified Codes: J18.9 - Pneumonia, unspecified organism CAM TRAN MD May 21, 2021 12:31
[2021-05-21 16:00] VITALS: BP 152/73
[2021-05-21] MEDS: TAMSULOSIN 0.4 MG (FLOMAX) CAP PO SCH (17:15)
[2021-05-21 19:52] VITALS: BP 126/72
[2021-05-22] VITALS: BP 96/60
[2021-05-22] MEDS: CEFEPIME 1,000 MG/NS 50 ML IVPB IV SCH ×4 (03:11→09:44)
[2021-05-22 04:01] VITALS: BP 118/75
[2021-05-22] MEDS: inSUlin ASPART (NovoLOG) 1 UNIT/0.01 ML (CHARGE PER UNIT) SC SCH ×4 (05:28→12:07)
[2021-05-22] MEDS: metFORMIN 500 MG (GLUCOPHAGE) TAB PO SCH (05:33)
[2021-05-22 06:02] LABS: HEMATOCRIT 39 % (40-54); HEMOGLOBIN 12.6 g/dL (13.3-17.7); MEAN CORPUSCULAR HGB CONC 32 g/dL (32-36)
[2021-05-22 06:04] LABS: BASOPHILS % (AUTO) 0 % (0-10); EOSINOPHILS # (AUTO) 0.4 10^3/uL (0.0-0.3); EOSINOPHILS % (AUTO) 5 % (0-10); LYMPHOCYTES # (AUTO) 1.6 10^3/uL (1.0-4.0); LYMPHOCYTES % (AUTO) 21 % (12-44); MEAN CORPUSCULAR HEMOGLOBIN 30 pg (25-34); MEAN CORPUSCULAR VOLUME 94 fL (80-99); MEAN PLATELET VOLUME 10.8 fL (9.0-12.2); MONOCYTES # (AUTO) 0.8 10^3/uL (0.0-1.0); MONOCYTES % (AUTO) 11 % (0-12); NEUTROPHILS # (AUTO) 4.8 10^3/uL (1.8-7.8); NEUTROPHILS % (AUTO) 63 % (42-75); PLATELET COUNT 130 10^3/uL (130-400); WHITE BLOOD COUNT 7.6 10^3/uL (4.3-11.0)
[2021-05-22 06:20] LABS: ALBUMIN 2.6 GM/DL (3.2-4.5); POTASSIUM 3.5 MMOL/L (3.6-5.0)
[2021-05-22 06:21] LABS: CALCIUM 7.9 MG/DL (8.5-10.1)
[2021-05-22 06:22] LABS: TOTAL PROTEIN 4.7 GM/DL (6.4-8.2)
[2021-05-22 06:24] LABS: BILIRUBIN,TOTAL 0.8 MG/DL (0.1-1.0)
[2021-05-22 06:26] LABS: CREATININE SERUM 1.19 MG/DL (0.60-1.30)
[2021-05-22 08:00] VITALS: BP 113/70
--- NOTE | 2021-05-22 09:07 | Physical Therapy Daily Note ---
PT Daily Note-Current Subjective Patient presented laying in bed and agreed to get up to the chair for breakfast. Mental Status Patient Orientation: Person, Situation Transfers SCALE: Activities may be completed with or without assistive devices. 0-[place] completes the activity by him/herself with no assistance from a helper. 5-Set-up or Clean-up Assistance-helper sets up or cleans up; patient completes activity. [place] assists only prior to or following the activity. 4-Supervision or Touching Assistance-helper provides verbal cues and/or touching/steadying and/or contact guard assistance as patient completes activity. Assistance may be provided throughout the activity or intermittently. 3-Partial/Moderate Assistance-helper does LESS THAN HALF the effort. [place] lifts, holds or supports trunk or limbs, but provides less than half the effort. 2-Substantial/Maximal Assistance-helper does MORE THAN HALF the effort. [place] lifts or holds trunk or limbs and provides more than half the effort. 6-Dqpwavayx-xbkovu does ALL the effort. Patient does none of the effort to complete the activity. Or, the assistance of 2 or more helpers is required for the patient to complete the activity. If activity was not attempted, code reason: 7-Patient Refused. 9-Not Applicable-not attempted and the patient did not perform the activity before the current illness, exacerbation or injury. 10-Not Attempted due to Environmental Limitations-(lack of equipment, weather restraints, etc.). 88-Not Attempted due to Medical Conditions or Safety Concerns. Lying to Sitting/Side of Bed(Q: 3 Sit to Stand (QC): 3 Chair/Zcx-tg-Uvrgw Xfer(QC): 3 Toilet Transfer (QC): 3 Patient required min assist for all bed mobility and transfers. Gait Training Does the Patient Walk?: Yes Distance: 150' Walk 10 feet (QC): 4 Walk 50 ft with 2 Turns(QC): 4 Walk 150 ft (QC): 4 Gait Assistive Device: FWW Patient ambulates with bent knees and flexed trunk. Patient reported fatigue and reported he could not walk any further. Assessment Patient ambulated to the bathroom and outside his room with therapy today. Patient requires min assist for transfers but requires CGA for ambulation. Patient fatigues quickly with ambulation. Patient left post tx in chair with nurse call and chair alarm set. PT Mcfp Goals Mcfp Goals PT Mcfp Goals Time Frame: May 30, 2021 Roll Left & Right (QC): 4 Sit to Lying (QC): 4 Lying-Sitting on Side/Bed(QC): 4 Sit to Stand (QC): 4 Chair/Xhg-dq-Zjehn Xfer(QC): 4 Toilet Transfer (QC): 4 Walk 10 feet (QC): 4 Walk 50ft with 2 Turns (QC): 4 Walk 150 ft (QC): 4 PT Plan Problem List Problem List: Activity Tolerance, Functional Strength, Safety, Balance, Gait, Transfer, Bed Mobility, ROM Treatment/Plan Treatment Plan: Continue Plan of Care Treatment Plan: Bed Mobility, Education, Functional Activity [place], Functional Strength, Gait, Safety, Therapeutic Exercise, Transfers Treatment Duration: May 30, 2021 Frequency: 6 times per week Estimated Hrs Per Day: .25 hour per day Time/GCodes Time In: 800 Time Out: 815 Total Billed Treatment Time: 15 Total Billed Treatment 1 Visit FA 15 min JENAE SONG PT May 22, 2021 09:07
[2021-05-22] MEDS ORDERED: MAGN400T39 PO (09:37)
[2021-05-22] MEDS ORDERED: METF-478 PO (09:37)
[2021-05-22] MEDS ORDERED: CHOL100048 PO (09:37)
[2021-05-22] MEDS ORDERED: METO50TA15 PO (09:37)
[2021-05-22] MEDS ORDERED: INSU100V5 SQ (09:37)
[2021-05-22] MEDS ORDERED: POLY17PO6 PO (09:37)
[2021-05-22] MEDS ORDERED: TMSL.4C PO (09:37)
[2021-05-22] MEDS ORDERED: ASPI325T32 PO (09:37)
[2021-05-22] MEDS ORDERED: SENN-234 PO (09:37)
[2021-05-22] MEDS ORDERED: INSU100V16 SC (09:37)
[2021-05-22] MEDS ORDERED: POTA-51 PO (09:37)
[2021-05-22] MEDS ORDERED: FOLI0.4T6 PO (09:37)
[2021-05-22] MEDS ORDERED: ATOR40TA70 PO (09:37)
[2021-05-22] MEDS ORDERED: AMLO-251 PO (09:37)
--- NOTE | 2021-05-22 09:44 | Discharge Summary ---
Discharge Summary Reconcile Patient Problems Problems Reviewed?: Yes Hospital Course Hospital Course Date of Admission: May 17, 2021 at 11:15 Admission Diagnosis : T2DM with HHS Family Physician/Provider: Mariajose Grace Date of Discharge: 05/22/21 Discharge Diagnosis: T2DM with HHS Hospital Course: Khris Dc is a 76 year old male who was admitted with T2DM with HHS. He was started on IV insulin and improved. He was transitioned to daily Levemir and Novolog with meals. He was continued on Metformin as well. He had a pneumonia and was given a course of antibiotics. His blood pressure was low and several of his medications were discontinued. He was debilitated and worked with therapy. He was discharged to [facility] for ongoing skilled therapy needs. Labs and Pending Lab Test: Laboratory Tests 05/21/21 11:39: Glucometer 156H 05/21/21 15:51: Glucometer 150H 05/21/21 19:51: Glucometer 164H 05/22/21 05:30: White Blood Count 7.6, Red Blood Count 4.18L, Hemoglobin 12.6L, Hematocrit 39L, Mean Corpuscular Volume 94, Mean Corpuscular Hemoglobin 30, Mean Corpuscular Hemoglobin Concent 32, Red Cell Distribution Width 13.7, Platelet Count 130, Mean Platelet Volume 10.8, Immature Granulocyte % (Auto) 1, Neutrophils (%) (Auto) 63, Lymphocytes (%) (Auto) 21, Monocytes (%) (Auto) 11, Eosinophils (%) (Auto) 5, Basophils (%) (Auto) 0, Neutrophils # (Auto) 4.8, Lymphocytes # (Auto) 1.6, Monocytes # (Auto) 0.8, Eosinophils # (Auto) 0.4H, Basophils # (Auto) 0.0, Immature Granulocyte # (Auto) 0.0, Percent Immature Platelet Fraction 3.9, Sodium Level 139, Potassium Level 3.5L, Chloride Level 115H, Carbon Dioxide Level 18L, Anion Gap 6, Blood Urea Nitrogen 21H, Creatinine 1.19, Estimat Glomerular Filtration Rate 64, BUN/Creatinine Ratio 18, Glucose Level 116H, Calcium Level 7.9L, Corrected Calcium 9.0, Total Bilirubin 0.8, Aspartate Amino Transf (AST/SGOT) 20, Alanine Aminotransferase (ALT/SGPT) 33, Alkaline Phosphatase 86, Total Protein 4.7L, Albumin 2.6L 05/22/21 05:59: Glucometer 100 Microbiology 05/17/21 MRSA Screen - Final, Complete MRSA not isolated 05/17/21 Urine Culture - Final, Complete NO GROWTH 05/17/21 Blood Culture - Preliminary, Resulted No growth Home Meds Active Novolog (Insulin Aspart) 100 Unit/1 Ml Susp 7 Unit SC AC 30 Days Levemir (Insulin Determir) 1,000 Units/10 Ml Soln 40 Unit SQ HS 30 Days Flomax (Tamsulosin HCl) 0.4 Mg Cap 0.4 Mg PO 1800 30 Days Senna (Sennosides) 8.6 Mg Tablet 8.6 Mg PO DAILY PRN 30 Days Potassium Chloride 20 Meq Tablet.er 20 Meq PO DAILY 30 Days Miralax (Polyethylene Glycol 3350) 17 Gm Powd.pack 17 Gm PO DAILY PRN 30 Days Metoprolol Tartrate 50 Mg Tablet 50 Mg PO BID 30 Days Metformin HCl ER (Metformin HCl) 500 Mg Tab.er.24 500 Mg PO BIDAC 30 Days Magnesium (Magnesium Oxide) 400 Mg Tablet 400 Mg PO DAILY 30 Days Folic Acid 0.4 Mg Tablet 0.4 Mg PO DAILY 30 Days Vitamin D3 (Cholecalciferol (Vitamin D3)) 25 Mcg Capsule 25 Mcg PO DAILY 30 Days Atorvastatin Calcium 40 Mg Tablet 40 Mg PO HS 30 Days Aspirin EC (Aspirin) 325 Mg Tablet.dr 325 Mg PO DAILY 30 Days Amlodipine Besylate 10 Mg Tablet 10 Mg PO DAILY 30 Days Reported Spironolactone 25 Mg Tablet 25 Mg PO DAILY Prazosin HCl 5 Mg Capsule 5 Mg PO HS Potassium Chloride 20 Meq Tablet.er 20 Meq PO 1800 Lisinopril 40 Mg Tablet 40 Mg PO BID Clonidine HCl 0.2 Mg Tablet 0.2 Mg PO BID Instructions to Patient/Family Assessment/Instructions Take medications as prescribed. Begin using insulin for your diabetes. Follow up with your PCP. Return with worsening weakness, confusion, or if you feel like you are getting worse. Follow Up Appt.: next care home rounds Skilled NF Admit to: [facility] Certification (SNF) I certify that SNF services are required to be given on an inpatient basis because of the above named patient's need for usp care on a continuing basis for the conditions(s) for which he/she was receiving inpatient hospital services prior to his/her transfer to the SNF. [facility]sp Facility Order: Nursing Services, School Bus Inspector-Evaluate & Treat, Physical Therapy-Evaluate & Treat Oxygen Delivery Method: Room Air Discharge Diet: ADA Diet Daily Activity as Tolerated: Yes Resuscitation Status: Full Code Adele Tran May 22, 2021 09:38 Discharge Physical Exam General: Alert, Cooperative HEENT: Atraumatic, EOMI, Mucous Memb Moist/[place] Lungs: Clear to Auscultation, Normal Air Movement Heart: Regular Rate, No Murmurs Abdomen: Normal Bowel Sounds, Soft, No Tenderness Extremities: No Edema, No Tenderness/Swelling Skin: No Rashes, No Significant Lesion Neuro: Normal Speech Psych/Mental Status: Mental Status NL, Other (depressed affect) ADELE TRAN MD May 22, 2021 09:43
[2021-05-22] MEDS: amLODIPine 10 MG (NORVASC) TAB PO SCH (09:45)
[2021-05-22] MEDS: SENNA W/DOCUSATE (SENOKOT S) TABLET PO SCH (09:45)
[2021-05-22] MEDS: meTOprolol TARTRATE 50 MG (LOPRESSOR) TAB PO SCH (09:45)
[2021-05-22] MEDS: MICONAZOLE 2% POWDER (DESENEX AF) 90 GM TOP SCH (09:45)
[2021-05-22] MEDS: DOCUSATE SODIUM 100 MG (COLACE) CAP PO SCH (09:46)
[2021-05-22 12:00] VITALS: BP 119/67
[2021-05-22] MEDS: ENOXAPARIN 40 MG/0.4 ML (LOVENOX) SYR SC SCH (12:31)
[2021-05-22 14:20] VITALS: BP 119/67
== END 2021-05-22 14:21 | DRG 637 ==
LOC: EDUNIT# 09:52 → ER 09:56 → ICU 11:15 → 4TH 05-19 21:18
PROVIDERS: ADMIT Internal Medicine; ATTEND Internal Medicine
DX: E11.00 Type 2 diabetes mellitus with hyperosmolarity without nonketotic hyperglycemic-hyperosmolar coma (NKHHC) (principal); J18.9 Pneumonia, unspecified organism; J96.01 Acute respiratory failure with hypoxia; I21.A1 Myocardial infarction type 2; G93.40 Encephalopathy, unspecified; N17.9 Acute kidney failure, unspecified; E86.0 Dehydration; I95.9 Hypotension, unspecified; D72.829 Elevated white blood cell count, unspecified; Z87.891 Personal history of nicotine dependence; I10 Essential (primary) hypertension; E78.5 Hyperlipidemia, unspecified; F03.90 Unspecified dementia, unspecified severity, without behavioral disturbance, psychotic disturbance, mood disturbance, and anxiety; N40.0 Benign prostatic hyperplasia without lower urinary tract symptoms; Z20.822 Contact with and (suspected) exposure to COVID-19
CPT/HCPCS: 36415; 51702; 70450; 71045; 72125; 80048; 80053; 80306; 80320; 81000; 82010; 82140; 82805; 82947; 83036; 83605; 83735; 84100; 84145; 84484; 85007; 85025; 85027; 85379; 85610; 85730; 87040; 87081; 87088; 87636; 93005; 94640; 94664; 96361; 96365; 96366; 96367; 96375; 99291

== ENCOUNTER → 2021-06-16 | Outpatient (CLI) | payer OTHER ==
[~2021-06-16] MED LIST: AMLO-251 PO; ASPI325T32 PO; ATOR40TA70 PO; ATOR80TA76 PO; CHOL100048 PO; CLN.2T PO; FOLI0.4T6 PO; INSU100V16 SC; INSU100V5 SQ; LISI40TA9 PO; MAGN400T39 PO; METF-478 PO; METO100T12 PO; METO50TA15 PO; POLY17PO6 PO; POTA-51 PO; PRAZ5CAP2 PO; SENN-234 PO; SPIR25TA5 PO; TMSL.4C PO
[2021-06-16 17:10] LABS: BASOPHILS % (AUTO) 1 % (0-10); EOSINOPHILS # (AUTO) 0.2 10^3/uL (0.0-0.3); EOSINOPHILS % (AUTO) 3 % (0-10); HEMATOCRIT 40 % (40-54); HEMOGLOBIN 13.2 g/dL (13.3-17.7); LYMPHOCYTES # (AUTO) 1.9 10^3/uL (1.0-4.0); LYMPHOCYTES % (AUTO) 30 % (12-44); MEAN CORPUSCULAR HEMOGLOBIN 30 pg (25-34); MEAN CORPUSCULAR HGB CONC 33 g/dL (32-36); MEAN CORPUSCULAR VOLUME 90 fL (80-99); MEAN PLATELET VOLUME 9.3 fL (9.0-12.2); MONOCYTES # (AUTO) 0.5 10^3/uL (0.0-1.0); MONOCYTES % (AUTO) 8 % (0-12); NEUTROPHILS # (AUTO) 3.7 10^3/uL (1.8-7.8); NEUTROPHILS % (AUTO) 58 % (42-75); PLATELET COUNT 233 10^3/uL (130-400); WHITE BLOOD COUNT 6.3 10^3/uL (4.3-11.0)
[2021-06-16 17:38] LABS: ALBUMIN 3.6 GM/DL (3.2-4.5); CALCIUM 8.6 MG/DL (8.5-10.1); POTASSIUM 3.2 MMOL/L (3.6-5.0); TOTAL PROTEIN 6.1 GM/DL (6.4-8.2)
== END ==
LOC: IHC 17:02
PROVIDERS: ATTEND Internal Medicine
DX: C45.7 Mesothelioma of other sites (principal)
CPT/HCPCS: 80053; 85025